=== PATIENT | male | born 1970 | race American Indian/Alaskan Native ===

== ENCOUNTER 2019-04-13 21:38 | Emergency (ER) | payer OTHER, SELFPAY ==
[2019-04-13 21:49] VITALS: BP 167/100; PULSE 69; RESP 16; TEMP 36.9; O2SAT 100; BMI 30.4
--- NOTE | 2019-04-13 21:53 | DI.RAD.S_ITS ---
PROCEDURE: XR CHEST 1V INDICATIONS: chest pain TECHNIQUE: One view of the chest was acquired. COMPARISON: None. FINDINGS: Surgical changes and devices: None. Lungs and pleura: Lungs are clear. No pleural effusions or pneumothorax. Mediastinum: Mediastinal contours appear normal. Heart size is normal. Bones and chest wall: No suspicious bony lesions. Overlying soft tissues appear unremarkable. IMPRESSION: No acute cardiopulmonary abnormalities or focal airspace disease. Dictated by: Deven Wayne M.D. on 04/14/2019 at 7:43 Approved by: Deven Wayne M.D. on 04/14/2019 at 7:43
[2019-04-13 22:13] LABS: Prothrombin Time 11.7 SECONDS (10.1-12.7)
[2019-04-13 22:15] LABS: Add Manual Diff / Slide Review NO; Basophils Absolute Auto 100 /uL (0-100); Basophils Percent Auto 1.2 % (0-2); Eosinophils Absolute Auto 200 /uL (0-450); Eosinophils Percent Auto 2.3 % (2-4); Hematocrit 40.8 % (41-53); Hemoglobin 13.9 g/dL (13.5-17.5); Lymphocytes Absolute Auto 2000 /uL (1100-4500); Lymphocytes Percent Auto 29.7 % (25-40); Mean Corpuscular HGB Conc 33.9 % (30-36); Mean Corpuscular Hemoglobin 28.7 PG (26-34); Mean Corpuscular Volume 84.5 fL (80-100); Monocytes Absolute Auto 600 /uL (0-900); Monocytes Percent Auto 8.5 % (3-14); Neutrophils Absolute Auto 4000 /uL (1500-7000); Neutrophils Percent Auto 58.3 % (50-75); Platelet Count 227 X10^3/uL (150-400); Red Blood Cell Count 4.83 X10^6/uL (4.5-5.9); Red Cell Distribution Width 14.8 % (11.6-14.8); White Blood Cell Count 6.8 X10^3/uL (4.5-11.0)
[2019-04-13 22:16] LABS: PTT Partial Thromboplastin Tim 37 SECONDS (26.4-36.2)
[2019-04-13 22:19] LABS: Alanine Aminotransferase 26 IU/L (<50); Albumin 4.2 g/dL (3.5-5.0); Albumin Globulin Ratio 1.2 (1.0-2.8); Alkaline Phosphatase 79 U/L (38-126); Aspartate Aminotransferase 24 IU/L (17-59); Bilirubin Total 0.5 mg/dL (0.2-1.3); Blood Urea Nitrogen 14 mg/dL (9-20); Calcium 9.2 mg/dL (8.4-10.2); Carbon Dioxide 32 mmol/L (22-32); Chloride 106 mmol/L (98-107); Creatine Kinase 77 U/L (55-170); Estimated Glomerular Filt Rate > 60.0 mL/min (>60); Globulin 3.4 g/dL (1.7-4.1); Glucose 114 mg/dL (70-100); HEMOLYSIS < 15 (0-50); Lipase 149 U/L (23-300); Potassium 4.1 mmol/L (3.4-5.1); Sodium 143 mmol/L (137-145); Total Protein 7.6 g/dL (6.3-8.2)
--- NOTE | 2019-04-13 22:19 | ED_ITS ---
HPI - Chest Pain General Chief Complaint: Chest Pain Stated Complaint: left side chest pain Time Seen by Provider: 04/13/19 22:18 Source: patient Mode of arrival: Ambulatory History of Present Illness HPI narrative: Chief complaint: Chest Pain History present illness: The patient is a 49-year-old male who presented to the emergency department with left-sided chest pain which started yesterday. The chest pain was not constant but intermittent. It occurred while he was at home last night and not at work. The pain occurred again tonight while he was attending his son's basketball practice. The pain is a sharp intermittent pain that occurs when deep breathing coughing to twisting and moving. He denies any fall or injury. The discomfort ranges in intensity from 5-8 over 10. He denies any cough fever or chills. He has had no headache neck pain jaw pain shoulder arm pain. The pain is fleeting and lasts only for a few seconds. He has felt short of breath but has had no significant cough. He has had no dizziness but has had intermittent palpitations. He denies any nausea or vomiting but has had intermittent diarrhea. Related Data Previous Rx's Medication Instructions Recorded cyclobenzaprine 10 mg PO TID PRN #15 tab 04/13/19 naproxen [Naprosyn] 500 mg PO BID PRN #20 tab 04/13/19 Allergies Allergy/AdvReac Type Severity Reaction Status Date / Time No Known Allergies Allergy Uncoded 06/12/17 12:55 Review of Systems Review of Systems Narrative: The patient's review of systems were all negative except for those mentioned in the history of present illness. Patient History Social History Smoking Status: Never smoker Smoking Status: Never smoker alcohol intake frequency: 0-2 drinks per day Substance Use Type: does not use Exam Narrative Exam Narrative: PHYSICAL EXAM: CONSTITUTIONAL: Awake, Alert, Oriented, Coherent, Cooperative in NAD. Does not appear toxic or ill. HEAD: AT/NC EENT: PERRL, FROM of eyes, no discharge, Oral mucosa is moist and pink, posterior pharynx is without erythema or exudate. NECK: Supple, no obvious JVD, Trachea is midline without stridor, no palpable LN or masses. SPINE: No gross deformity, no palpable tenderness of the cervical, thoracic, lumbar or sacral spine. No CVA tenderness. THORAX: No deformity, retractions, subcutaneous air or crepitice. The patien t's left costal sternal margin is tender to palpation as well as AP compression which is reproducible and mimics the chest pain described. LUNGS: Clear with symmetrical breath sounds without respiratory distress HEART: Normal heart tones, regular rhythm and rate without murmur. ABDOMEN: Soft, non-tender, normal bowel sounds without guarding, rebound, rigidity or palpable mass EXTREMITIES: No edema, cyanosis, deformity or tenderness. SKIN: No rash, bruising, petechiae or purpura. NEURO: Awake, alert, oriented, conversive, cranial nerves II-XII are symmetrical and normal, moves all 4 extremities and is ambulatory Initial Vital Signs Initial Vital Signs: Vital Signs Temperature 98.4 F 04/13/19 21:49 Pulse Rate 69 04/13/19 21:49 Respiratory Rate 16 04/13/19 21:49 Blood Pressure 167/100 H 04/13/19 21:49 Pulse Oximetry 100 04/13/19 21:49 Course Course Course Narrative: [id number] patient's EKG reveals no acute diagnostic ST changes or T-wave abnormalities. The patient's chest x-ray by my review reveals poor inspiration but I did not appreciate any acute cardiopulmonary pathology. The patient's chest pain that he describes is reproducible on palpation along the arm left costovertebral angle and costal sternal margins without crepitus. This is reproducible and mimics the chest pain described. The patient's chest pain is musculoskeletal in nature and will be discharged on Naprosyn and Flexeril. Orders Ordered: ED Orders 04/13/19 21:49 EKG-12 Lead Stat 04/13/19 21:53 XR chest 1V Stat 04/13/19 21:55 Complete Blood Count AUTO DIFF Stat Comprehensive Metabolic Panel Stat Lipase Stat Partial Thromboplastin Time Stat Prothrombin Time INR Stat Troponin & CK Cardiac Panel Stat Vital Signs Vital signs: Vital Signs - 8 hr 04/13/19 21:49 Temperature 98.4 F Pulse Rate 69 Respiratory Rate 16 Blood Pressure 167/100 H Pulse Oximetry 100 MDM - Chest Pain Medical Records Data Attestation: I reviewed the patient's medical records. Lab Data Attestation: I reviewed the patient's lab results. Result diagrams: 04/13/19 21:55 04/13/19 21:55 Labs: Lab Results 04/13/19 04/13/19 04/13/19 Range/Units 21:55 21:55 21:55 WBC 6.8 (4.5-11.0) X10^3/uL RBC 4.83 (4.5-5.9) X10^6/uL Hgb 13.9 (13.5-17.5) g/dL Hct 40.8 L (41-53) % MCV 84.5 (80-100) fL MCH 28.7 (26-34) PG MCHC 33.9 (30-36) % RDW 14.8 (11.6-14.8) % Plt Count 227 (150-400) X10^3/uL Neut % (Auto) 58.3 (50-75) % Lymph % (Auto) 29.7 (25-40) % [place] % (Auto) 8.5 (3-14) % Eos % (Auto) 2.3 (2-4) % Baso % (Auto) 1.2 (0-2) % Neut # (Auto) 4000 (7514-3278) /uL Lymph # (Auto) 2000 (6269-8385) /uL [place] # (Auto) 600 (0-900) /uL Eos # (Auto) 200 (0-450) /uL Baso # (Auto) 100 (0-100) /uL PT 11.7 (10.1-12.7) SECONDS INR 1.0 (0.9-1.3) APTT 37 H (26.4-36.2) SECONDS Sodium 143 (137-145) mmol/L Potassium 4.1 (3.4-5.1) mmol/L Chloride 106 (98-107) mmol/L Carbon Dioxide 32 (22-32) mmol/L BUN 14 (9-20) mg/dL Creatinine 1.00 (0.66-1.25) mg/dL Estimated GFR > 60.0 (>60) mL/min BUN/Creatinine Ratio 14.0 (6-22) Glucose 114 H (70-100) mg/dL Calcium 9.2 (8.4-10.2) mg/dL Total Bilirubin 0.5 (0.2-1.3) mg/dL AST 24 (17-59) IU/L ALT 26 (<50) IU/L Alkaline Phosphatase 79 (38-126) U/L Total Creatine Kinase 77 (55-170) U/L CK-MB (CK-2) TNP CK-MB (CK-2) Rel Index TNP Troponin I < 0.012 (0.01-0.034) ng/mL Total Protein 7.6 (6.3-8.2) g/dL Albumin 4.2 (3.5-5.0) g/dL Globulin 3.4 (1.7-4.1) g/dL Albumin/Globulin Ratio 1.2 (1.0-2.8) Lipase 149 (23-300) U/L ECG Data Attestation: I personally reviewed and interpreted this ECG as follows: Interpretation: The patient's EKG obtained on April 13 at 21:4 9:11 a.m. revealed a sinus rhythm with minimal voltage criteria for left ventricular hypertrophy. The patient has a Q-wave in lead III but none noted anywhere else in the EKG. The patient has inverted T-waves in leads III AVF and V1. This may indicate that the patient has inferior wall ischemia or even a possible infarct of unknown age. The patient has non specific ST segment changes but nondiagnostic for an acute injury or acute ischemia. Discharge Plan Departure Patient Disposition: Home Clinical Impression: Atypical chest pain, Chest wall pain Discharge Date/Time: 04/13/19 23:25 Instructions: DI for Atypical Chest Pain Activity Restrictions/Additional Instructions: Follow-up in be re-evaluated by your primary care physician in 48-72 hours. Your EKG revealed no acute changes to suggest that your pain is secondary to your heart. Your chest x-ray looks fine. Your chest pain is reproducible by squeezing and palpating your chest. This is chest wall pain. Take the Naprosyn as a pain medicine and anti-inflammatory medicine for the discomfort and for persistent pain unrelieved by the Naprosyn or associated muscle spasms use the Flexeril. If you developed intolerable pain or discomfort or shortness of breath racing of your heart in passing-out you need to return to the emergency department. Prescriptions: New naproxen [Naprosyn] 500 mg tablet 500 mg PO BID PRN (Reason: pain) Qty: 20 RF: 0 cyclobenzaprine 10 mg tablet 10 mg PO TID PRN (Reason: muscle spasm) Qty: 15 RF: 0
[2019-04-13 22:30] LABS: Troponin I < 0.012 ng/mL (0.01-0.034)
[2019-04-13 23:25] VITALS: BP 138/88; PULSE 72; RESP 16; O2SAT 99
== END 2019-04-13 23:25 | disposition home or self-care (01) ==
PROVIDERS: Emergency Provider Emergency Medicine
DX: R07.89 Other chest pain (principal)
CPT/HCPCS: 36415; 71045; 80053; 82550; 83690; 84484; 85025; 85610; 85730; 93005; 99284; 99285

== ENCOUNTER 2020-10-28 23:43 | Inpatient (IN) | payer OTHER, SELFPAY ==
[2020-10-29] VITALS (14 sets, daily range): BP systolic 104–183; BP diastolic 59–110; PULSE 58–72; RESP 12–20; TEMP 36.1–37.5; O2SAT 93–100; BMI 28.6
--- NOTE | 2020-10-29 00:07 | DI.CT.S_ITS ---
PROCEDURE: CT LE RT W CON INDICATIONS: large open wound, pain, swelling, drainage. Osteo, abscess, TECHNIQUE: After the administration of intravenous contrast, 3 mm axial sections acquired of the right lower leg , with coronal and sagittal reformats. COMPARISON: None. FINDINGS: Image quality: Excellent. Bones: No acute fracture or traumatic malalignment. Postoperative changes of ACL reconstruction are present. Mild joint space narrowing and marginal osteophytes of the medial and lateral compartments of the knee. Mild osteophyte formation in the tibiotalar joint. No evidence of osteomyelitis. Soft tissues: Large defect along the skin surface of the anterior mid clark with associated skin thickening and surrounding fatty stranding involving the lower leg to just below the knee. No soft tissue abscess. No evident myofascial changes. IMPRESSION: 1. Large soft tissue defect/ulcer of the midshin with associated cellulitis. No abscess. 2. No evidence of osteomyelitis within limits of CT. 3. Mild degenerative changes of the knee and ankle. Note: No significant discrepancy in the preliminary report. Dictated by: Hema Xie M.D. on 10/29/2020 at 7:36 Approved by: Hema Xie M.D. on 10/29/2020 at 7:42
[2020-10-29 00:44] LABS: Add Manual Diff / Slide Review NO; Basophils Absolute Auto 100 /uL (0-100); Basophils Percent Auto 0.6 % (0-2); Eosinophils Absolute Auto 100 /uL (0-450); Eosinophils Percent Auto 1.2 % (2-4); Hematocrit 36.4 % (41-53); Hemoglobin 12.1 g/dL (13.5-17.5); Lymphocytes Absolute Auto 1800 /uL (1100-4500); Lymphocytes Percent Auto 18.8 % (25-40); Mean Corpuscular HGB Conc 33.2 % (30-36); Mean Corpuscular Hemoglobin 27.8 PG (26-34); Mean Corpuscular Volume 83.7 fL (80-100); Monocytes Absolute Auto 700 /uL (0-900); Monocytes Percent Auto 6.8 % (3-14); Neutrophils Absolute Auto 7000 /uL (1500-7000); Neutrophils Percent Auto 72.6 % (50-75); Platelet Count 259 X10^3/uL (150-400); Red Blood Cell Count 4.35 X10^6/uL (4.5-5.9); Red Cell Distribution Width 15.2 % (11.6-14.8); White Blood Cell Count 9.7 X10^3/uL (4.5-11.0)
--- NOTE | 2020-10-29 00:44 | ED.WOUNDLAC ---
HPI - Wound/Laceration General Chief Complaint: Wound/Laceration Stated Complaint: open wound, infected Time Seen by Provider: 10/28/20 23:50 Source: patient Mode of arrival: Ambulatory Limitations: no limitations History of Present Illness HPI narrative: 50-year-old male nonsmoker with history of eczema, MRSA and hypertension presents for evaluation of an infected wound on his left clark. He states that he scraped it while working on a golf cart at the end of August. He was seen by his doctor and placed on a prescription of what sounds like Doxycyline. He had on going symptoms and was evaluated again around the 04 of September and started on Clindamycin which he stopped taking about senior care through. Over the past few and has been gradually worsening to the point we see today. He has been on clindamycin as prescribed by his primary care provider. He is here today because of fever and chills as well as worsening pain, redness and now blackening of the skin around the edges. He denies any redness or streaks moving up his leg. He is nauseous but denies any vomiting. The pain increases when he walks and improves with rest. Related Data Previous Rx's Medication Instructions Recorded cyclobenzaprine 10 mg tablet 10 mg PO TID PRN #15 tab 04/13/19 naproxen 500 mg tablet (Naprosyn) 500 mg PO BID PRN #20 tab 04/13/19 Allergies Allergy/AdvReac Type Severity Reaction Status Date / Time No Known Allergies Allergy Uncoded 06/12/17 12:55 Review of Systems Review of Systems Narrative: GENERAL: Denies chills, fatigue, malaise, fever, sweats. HEENT: Denies sinus pain, ear pain, sore throat, difficulty swallowing, dizziness. RESPIRATORY: Denies dyspnea, cough, wheezing, hemoptysis, sputum. CARDIOVASCULAR: Denies chest pain, palpitations, orthopnea, edema, GASTROINTESTINAL: Denies nausea, vomiting, abdominal pain, diarrhea, constipation, melena. : Denies dysuria, frequency, incontinence, hematuria, urinary retention. MUSCULOSKELETAL: denies weakness, joint pain, or bony pain SKIN: see HPI NEUROLOGIC: Denies weakness, headache, numbness, change in speech, confusion, seizures, incoordination. PSYCHIATRIC: No concerning psychosocial issues. 12 point review of systems is negative except for those stated above Patient History Social History Smoking Status: Never smoker Smoking Status: Never smoker alcohol intake frequency: 0-2 drinks per day Substance Use Type: does not use Exam Narrative Exam Narrative: GENERAL: [50] year old patient appears stated age. Well-developed patient, in mild distress. HEAD: Atraumatic. Normocephalic. EYES: Pupils equal round and reactive. Extraocular motions intact. No scleral icterus. No injection or drainage. ENT: Nose without bleeding, purulent drainage. Throat without erythema, tonsillar hypertrophy or exudate. Airway patent. NECK: Trachea midline. Non tender CARDIOVASCULAR: Regular rate and rhythm without murmurs, gallops, or rubs. RESPIRATORY: Clear to auscultation. Breath sounds equal bilaterally. No wheezes, rales, or rhonchi. GASTROINTESTINAL: Abdomen soft, non-tender, nondistended. EXTREMITIES: No edema or joint tenderness. BACK: Nontender without deformity or crepitance. No flank tenderness. NEURO: AOx3. SKIN: 7x5cm ulcerated open wound with copius drainage on R anterior clark. There is erythema, warmth, tenderness and induration of the lateral edge with some necrotic tissue. No fluctuance. Subcu tissue visible, no muscle or bone visible. No crepitance. Initial Vital Signs Initial Vital Signs: Vital Signs Temperature 99.5 F 10/29/20 00:05 Pulse Rate 70 10/29/20 00:05 Respiratory Rate 20 10/29/20 00:05 Blood Pressure 159/102 H 10/29/20 00:05 Pulse Oximetry 98 10/29/20 00:05 Course Orders Ordered: ED Orders 10/29/20 00:07 CT LE RT w con Stat 10/29/20 00:26 COVID19 - ADMIT ([employer] swab/PCR) Stat 10/29/20 00:27 C-Reactive Protein Quant Stat Complete Blood Count AUTO DIFF Stat Comprehensive Metabolic Panel Stat Erythrocyte Sedimentation Rate Stat Lactate (Lactic Acid) Stat Magnesium Stat 10/29/20 00:40 Wound Culture and Gram Stain Stat 10/29/20 00:43 Blood Culture Stat Vancomycin HCl/Dextrose (Vancomycin) 1,500 mg in 300 mls @ 200 mls/hr IV Q24H MARIEL Last Admin: 10/29/20 01:58 Dose: 200 mls/hr Documented by: ELROY Discontinued Medications Diphtheria/Tetanus/Acell Pertussis (Tet,Diph,Pertuss(Acell),Vac/Pf 0.5 Ml Syringe) 0.5 ml IM .ONCE ONE Stop: 10/29/20 00:08 Last Admin: 10/29/20 00:56 Dose: 0.5 ml Documented by: ELROY Lactated Ringer's (Lactated Ringers) 1,000 mls @ 1,000 mls/hr IV BOLUS ONE Stop: 10/29/20 01:06 Last Admin: 10/29/20 00:51 Dose: 1,000 mls/hr Documented by: ELROY Piperacillin Sod/Tazobactam (Sod 4.5 gm/ Sodium Chloride) 100 mls @ 200 mls/hr IV NOW ONE Stop: 10/29/20 00:08 Last Infusion: 10/29/20 01:53 Dose: 0 mls/hr Documented by: Admin: 10/29/20 00:52 Dose: 200 mls/hr Documented by: ELROY Consultations Consultation #1: Discussed with on-call general surgery (Dr. Hackett) who shares the pain and the patient is appropriate for admission, IV antibiotics and likely surgical debridement. Vital Signs Vital signs: Vital Signs - 8 hr 10/29/20 00:05 Temperature 99.5 F Pulse Rate 70 Respiratory Rate 20 Blood Pressure 159/102 H Pulse Oximetry 98 MDM - Wound/Laceration Lab Data Result diagrams: 10/29/20 00:27 10/29/20 00:27 Labs: Lab Results 10/29/20 10/29/20 10/29/20 Range/Units 00:26 00:27 00:27 WBC 9.7 (4.5-11.0) X10^3/uL RBC 4.35 L (4.5-5.9) X10^6/uL Hgb 12.1 L (13.5-17.5) g/dL Hct 36.4 L (41-53) % MCV 83.7 (80-100) fL MCH 27.8 (26-34) PG MCHC 33.2 (30-36) % RDW 15.2 H (11.6-14.8) % Plt Count 259 (150-400) X10^3/uL Neut % (Auto) 72.6 (50-75) % Lymph % (Auto) 18.8 L (25-40) % [place] % (Auto) 6.8 (3-14) % Eos % (Auto) 1.2 L (2-4) % Baso % (Auto) 0.6 (0-2) % Neut # (Auto) 7000 (8884-2437) /uL Lymph # (Auto) 1800 (3093-5854) /uL [place] # (Auto) 700 (0-900) /uL Eos # (Auto) 100 (0-450) /uL Baso # (Auto) 100 (0-100) /uL ESR 39 H (0-15) MM/HR Sodium 140 (137-145) mmol/L Potassium 3.4 (3.4-5.1) mmol/L Chloride 107 (98-107) mmol/L Carbon Dioxide 26 (22-32) mmol/L BUN 12 (9-20) mg/dL Creatinine 0.98 (0.66-1.25) mg/dL Estimated GFR > 60.0 (>60) mL/min BUN/Creatinine Ratio 12.2 (6-22) Glucose 144 H (70-100) mg/dL Lactate (0.7-2.1) mmol/L Calcium 8.7 (8.4-10.2) mg/dL Magnesium 2.1 (1.6-2.3) mg/dL Total Bilirubin 0.7 (0.2-1.3) mg/dL AST 25 (17-59) IU/L ALT 20 (<50) IU/L Alkaline Phosphatase 90 (38-126) U/L C-Reactive Protein 6.1 H (<1.0) mg/dL Total Protein 7.2 (6.3-8.2) g/dL Albumin 3.8 (3.5-5.0) g/dL Globulin 3.4 (1.7-4.1) g/dL Albumin/Globulin Ratio 1.1 (1.0-2.8) SARS-CoV-2 (PCR) Negative (Negative) 10/29/20 Range/Units 00:27 WBC (4.5-11.0) X10^3/uL RBC (4.5-5.9) X10^6/uL Hgb (13.5-17.5) g/dL Hct (41-53) % MCV (80-100) fL MCH (26-34) PG MCHC (30-36) % RDW (11.6-14.8) % Plt Count (150-400) X10^3/uL Neut % (Auto) (50-75) % Lymph % (Auto) (25-40) % [place] % (Auto) (3-14) % Eos % (Auto) (2-4) % Baso % (Auto) (0-2) % Neut # (Auto) (6330-8721) /uL Lymph # (Auto) (0394-2894) /uL [place] # (Auto) (0-900) /uL Eos # (Auto) (0-450) /uL Baso # (Auto) (0-100) /uL ESR (0-15) MM/HR Sodium (137-145) mmol/L Potassium (3.4-5.1) mmol/L Chloride (98-107) mmol/L Carbon Dioxide (22-32) mmol/L BUN (9-20) mg/dL Creatinine (0.66-1.25) mg/dL Estimated GFR (>60) mL/min BUN/Creatinine Ratio (6-22) Glucose (70-100) mg/dL Lactate 1.0 (0.7-2.1) mmol/L Calcium (8.4-10.2) mg/dL Magnesium (1.6-2.3) mg/dL Total Bilirubin (0.2-1.3) mg/dL AST (17-59) IU/L ALT (<50) IU/L Alkaline Phosphatase (38-126) U/L C-Reactive Protein (<1.0) mg/dL Total Protein (6.3-8.2) g/dL Albumin (3.5-5.0) g/dL Globulin (1.7-4.1) g/dL Albumin/Globulin Ratio (1.0-2.8) SARS-CoV-2 (PCR) (Negative) Imaging Data CT RLE w/Contrast: Radiologist's Impression: Contrast-enhanced images of left tibia fibula demonstrating a large open wound/ulcerative defect involving the mid anteromedial aspect of the calf with severe skin thickening and edema with simultaneous fat stranding originating at the level of the defect and extending inferiorly along the distal aspect of the calf. There is significant edema and skin thickening involving the medial and lateral margins of the left ankle near the malleoli. No fluid collection or abscess. Most consistent with open wound or ulcer with associated cellulitis. No cortical irregularity or erosive change involving the adjacent tibia Discharge Plan Departure Patient Disposition: Admitted as Observation Clinical Impression: Cellulitis of left leg, Leg ulcer, left Prescriptions: No Action naproxen [Naprosyn] 500 mg tablet 500 mg PO BID PRN (Reason: pain) Qty: 20 RF: 0 cyclobenzaprine 10 mg tablet 10 mg PO TID PRN (Reason: muscle spasm) Qty: 15 RF: 0 Referrals: Florentino Aguilar MD [Primary Care Provider] -
[2020-10-29 00:48] LABS: Alanine Aminotransferase 20 IU/L (<50); Albumin 3.8 g/dL (3.5-5.0); Albumin Globulin Ratio 1.1 (1.0-2.8); Alkaline Phosphatase 90 U/L (38-126); Aspartate Aminotransferase 25 IU/L (17-59); BUN Creatinine Ratio 12.2 (6-22); Bilirubin Total 0.7 mg/dL (0.2-1.3); Blood Urea Nitrogen 12 mg/dL (9-20); C-Reactive Protein Quant 6.1 mg/dL (<1.0); Calcium 8.7 mg/dL (8.4-10.2); Carbon Dioxide 26 mmol/L (22-32); Chloride 107 mmol/L (98-107); Estimated Glomerular Filt Rate > 60.0 mL/min (>60); Globulin 3.4 g/dL (1.7-4.1); Glucose 144 mg/dL (70-100); HEMOLYSIS < 15 (0-50); Magnesium 2.1 mg/dL (1.6-2.3); Potassium 3.4 mmol/L (3.4-5.1); Sodium 140 mmol/L (137-145); Total Protein 7.2 g/dL (6.3-8.2)
[2020-10-29] MEDS: LACTATED RINGERS 1,000 ML 1000 ML IV (00:51)
[2020-10-29] MEDS: PIPERACILLIN/TAZO 4.5 GM in SODIUM CHLORIDE 0.9% 100 ML 200 ML IV (00:52)
[2020-10-29] MEDS: TET,DIPH,PERTUSS(ACELL),VAC/PF 0.5 ML SYRINGE IM (00:56)
[2020-10-29 00:57] LABS: Erythrocyte Sedimentation Rate 39 MM/HR (0-15)
[2020-10-29 01:43] LABS: COVID19 - ADMIT (NP swab/PCR) Negative (Negative)
[2020-10-29] MEDS: VANCOMYCIN 1,500 MG/300 ML PIGGYBACK 200 MG IV (01:58)
--- NOTE | 2020-10-29 05:16 | PC.ADMIT ---
Addendum entered by Selene Flowers R.N. 10/29/20 06:45: Photos of Wound were taken upon admission. Original Note: [id number] [facility] Admission Note: Patient arrived to the unit via bed from the ED. Patient is A/O and states pain in RLL at 6/10. Patients wound has two wounds on RLL, both open to air. The larger wound measures approximately 6.5 cm x 5.5 cm with blackened skin around the edges, yellow in the center, and weeping. The second wound in distal to the larger wound, measures approximately 1 cm x 2 cm and is not open or weeping. Patients BP was elevated but states he normally has high blood pressure and takes a medication at home. Patient was oriented to room and call light, bed alarm is set with bed is in lowest locked position. Awaiting orders The patient,Jeff Culver,50 y/o, was given written information regarding hospital policies, unit procedures and contact persons. Patient's smoking status: Never smoker. Vital Signs - 8 hr 10/29/20 00:05 10/29/20 04:05 10/29/20 04:58 Temperature 99.5 F 97.6 F Pulse Rate 70 60 Respiratory Rate 20 20 Blood Pressure 159/102 H 183/110 H 177/106 H Pulse Oximetry 98 100
[2020-10-29] MEDS: SODIUM CHLORIDE 0.9% 1,000 ML 125 ML IV (05:56)
[2020-10-29] MEDS: PIPERACILLIN/TAZO 3.375 GM in SODIUM CHLORIDE 0.9% 100 ML 25 ML IV (05:56)
--- NOTE | 2020-10-29 08:39 | PM.HP.1 ---
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 2 rounds of oral antibiotics. Was improving and yesterday at a golf tournament his wound opened up again and started to drain. No fever, no cough. No previous issues with healing or known diabetes. Pain is with movement and touch. Patient History Family & Social History Social History: household members significant other Prior Living Arrangements House Safety & Behavioral: Feels Safe in Current Yes Environment Been Physically Hurt or No Threatened By a Person Suicidal Ideation Description None Suicide Plan Description No Plan Tobacco & Substance use: Smoking Status Never smoker alcohol intake never alcohol intake frequency 0-2 drinks per day Substance Use Type does not use Meds Home Medications and Allergies Home Medications Medication Instructions Recorded Confirmed Type lisinopril 10 mg tablet 10 mg PO DAILY 10/29/20 10/29/20 History Allergies Allergy/AdvReac Type Severity Reaction Status Date / Time No Known Drug Allergies Allergy Verified 10/29/20 07:15 Review of Systems Review of Systems ROS: Yes All systems reviewed with the patient and are negative except as otherwise documented Exam Vital Signs (past 8 hours): - 10/29/20 04:05 10/29/20 04:58 Temperature 97.6 F Pulse Rate 60 Respiratory Rate 20 Blood Pressure 183/110 H 177/106 H Pulse Oximetry 100 Oxygen Delivery Method Room Air Oxygen Flow Rate 0 Const General: cooperative and healthy appearing Nutritional Appearance: average body habitus HENNM Head: normal to inspection, normocephalic and atraumatic Ears: hearing grossly normal bilaterally Nose: nares normal Face and sinus: normal facial exam Eyes General: appearance normal, both eyes and all related structures Sclera: sclerae normal Neck Neck: trachea midline Chest Chest: normal inspection of the chest Resp Effort & Inspection: normal respiratory effort and able to speak in complete sentences Cardio Rate: tachycardic Rhythm: regular rhythm GI Inspection: normal to inspection Palpation: soft Skin General: elasticity normal Rashes: no rashes Other: right anterior tibia wound serous drainage exscar and necrotic tissue. 6 cm x 5.5 cm x .3 cm Neuro General: patient alert, patient awake and patient oriented x3 Extrem Other: right foot with edema, +hair growth, DP and PT not easily palpable due to edema, wound as above. Psych Mental Status: mental status grossly normal Attitude: cooperative Judgment: judgment good Objective Labs Result Diagrams: 10/29/20 00:27 10/29/20 00:27 Labs: Laboratory Results - last 24 hr 10/29/20 10/29/20 10/29/20 00:26 00:27 00:27 WBC 9.7 RBC 4.35 L Hgb 12.1 L Hct 36.4 L MCV 83.7 MCH 27.8 MCHC 33.2 RDW 15.2 H Plt Count 259 Neut % (Auto) 72.6 Lymph % (Auto) 18.8 L [place] % (Auto) 6.8 Eos % (Auto) 1.2 L Baso % (Auto) 0.6 Neut # (Auto) 7000 Lymph # (Auto) 1800 [place] # (Auto) 700 Eos # (Auto) 100 Baso # (Auto) 100 ESR 39 H Sodium 140 Potassium 3.4 Chloride 107 Carbon Dioxide 26 BUN 12 Creatinine 0.98 Estimated GFR > 60.0 BUN/Creatinine Ratio 12.2 Glucose 144 H Lactate Calcium 8.7 Magnesium 2.1 Total Bilirubin 0.7 AST 25 ALT 20 Alkaline Phosphatase 90 C-Reactive Protein 6.1 H Total Protein 7.2 Albumin 3.8 Globulin 3.4 Albumin/Globulin Ratio 1.1 SARS-CoV-2 (PCR) Negative 10/29/20 00:27 WBC RBC Hgb Hct MCV MCH MCHC RDW Plt Count Neut % (Auto) Lymph % (Auto) [place] % (Auto) Eos % (Auto) Baso % (Auto) Neut # (Auto) Lymph # (Auto) [place] # (Auto) Eos # (Auto) Baso # (Auto) ESR Sodium Potassium Chloride Carbon Dioxide BUN Creatinine Estimated GFR BUN/Creatinine Ratio Glucose Lactate 1.0 Calcium Magnesium Total Bilirubin AST ALT Alkaline Phosphatase C-Reactive Protein Total Protein Albumin Globulin Albumin/Globulin Ratio SARS-CoV-2 (PCR) Assessment & Plan Assessment & Plan narrative: right lower extremity wound with infection and necrosis. Plan: OR for debridement and wound vac. COVID-19 COVID-19 status: Negative Time Spent With Patient Time with patient: 25 - 35 minutes
[2020-10-29] MEDS: LACTATED RINGERS 1,000 ML 42 ML IV ×2 (10:10→11:11)
--- NOTE | 2020-10-29 10:45 | SUR.OPER ---
Supine on padded OR bed, head on pillow, arms secured on padded arm boards at <90 degrees abduction, legs uncrossed, safety belt at thigh, tape over blanket over lower legs.
--- NOTE | 2020-10-29 10:59 | PM.OP.1 ---
Operative Date/Time/Diagnoses Date of procedure: 10/29/20 Time of procedure: 11:00 Pre-op diagnosis: left lower leg wound Post-op diagnosis: same Procedure & Clinicians Procedure: debride left lower extremity with negative pressure dressing Same procedure as scheduled: Yes Indications: left lower leg wound Surgeon: Leyda Vital Click Yes if Unassisted: Yes Anesthesia Type: General Operative Notes Findings: Wound was size 6 cm by 5.5 cm by 0.0 3 cm. Debridement carried out with 15 blade, good bleeding that was addressed with direct pressure. Specimen(s): none sent Prosthetic devices, grafts, tissues, transplants, or devices: Negative pressure dressing Estimated Blood Loss (mL): 10 Blood products transfused: none Procedure in detail: Preop diagnosis: Left lower extremity wound. Postop diagnosis: Same Operative procedure: Debridement of left lower extremity with negative pressure dressing along with compression dressing. Surgeon: Ro Vital MD Anesthetic: LMA with general. Findings: Fibrinous tissue, necrotic tissue. Down to muscle, debridement was of skin and subcutaneous tissue Procedure: Patient is placed in a supine position. Prepped and draped in sterile fashion. Fifteen blade was chosen to scrape the eschar and sharply debride the necrotic tissue of the skin. Skin and subcutaneous tissue was all that was debrided. Hemostasis was achieved with direct pressure. Final size of the wound as above 6 cm x 5.5 cm x 3 mm in depth. White foam dressing used for wound VAC. Wound VAC was covered with a compression dressing due to extremity swelling. Patient was awakened, extubated, taken to recovery room in stable condition. Needle, instrument, sponge counts were correct. Blood loss: 10 mL Specimen: None
--- NOTE | 2020-10-29 11:03 | PC.NURSE ---
Addendum entered by Abena Oglesby R.N. 10/29/20 15:04: Pt returned to floor from PACU at 1140 with wound vac to RLE, kerlex and LURDES wrap; PPP; pt reports mild pain but declines schedule [place]; in room and ice water at bedside; pt needs MD to sign form for work excuse next to chart Original Note: Pt supine with wound to lower right clark open to air; wound bed pink/white and draining; wound edges black; pt reports thrubbing to RLE but declines pain medication; ls clear, RA; pt denies nausea; @ 1000 pt transferred to surgery
--- NOTE | 2020-10-29 11:45 | CM.DANOTE ---
Patient is a 50 yo male who was admitted on 10/29/20 today for Open Infected Wound. Pt has L&I for insurance and his PCP is Florentino Aguilar. EMR was reviewed. Per Surgeon, pt to start on IV-Abx and NPO for I&D in the OR today. SW met bedside with pt and explained role and pt confirms that he lives in [facility] at home with his , who works, and his young adult Dtr and teenage son. Pt is typically independent at baseline but has struggled with the healing of his wound since a cut in August and was on oral abx but did not take the recommended full course as wound seemed to be better. Pt denies any hx of IV-Abx needs or HH or SNF. Pt states his family can assist at d/c. SW discussed possible need of IV-Abx at d/c pending his I&D and wound culture results. Pt's L&I may be a barrier if IV-Abx needed and coverage. Plan: SW to follow closely after I&D today towards determining d/c planning needs and to r/o IV-Abx at d/c. KIMBERLY Pisano Discharge Planning/Care Management CM Discharge Assessment Start: 10/29/20 11:43 Freq: Status: Active Protocol: Document 10/29/20 11:43 BF (Rec: 10/29/20 11:45 BF [id number]) Discharge Planning Assessment Assigned Watershed Program Manager KIMBERLY Garcia DPOA/Assigned Designee Name informally spouse Advance Directives? No Advance Directives on File No History Provided By Patient,Medical Record Has Patient been admitted in last 30 No days? Prior Living Arrangements House Household Members significant other,children Comment and 2 older children/ young adult kids Type of transporation used prior to Drives own vehicle admit Independent with ADL's Yes Is patient alert and oriented? Yes Caregiver for Another No Barriers to Discharge No Discharge Plan Home Community Services IV Therapy Transportation Arrangement Rule out IV-Abx at d/c pending cultures and I&D today Referrals Initiated None needed Additional Comment Follow for needs Review Status In Process Please Provide Date Initial DC 10/29/20 Assessment Was Performed Next Review Type Continued Stay Review
[2020-10-29] MEDS: CELECOXIB 200 MG CAPSULE PO (12:13)
[2020-10-29 15:12] LABS: Hemoglobin A1C% w Est Avg Glu 5.2 % (4.0-6.0)
[2020-10-29] MEDS: SODIUM CHLORIDE 0.9% FLUSH 10 ML IV (21:30)
[2020-10-30 00:20] VITALS: BP 119/71; PULSE 69; RESP 16; TEMP 36.2; O2SAT 96
[2020-10-30 04:00] VITALS: BP 127/78; PULSE 54; RESP 16; TEMP 36.4; O2SAT 97
[2020-10-30 08:20] VITALS: BP 136/82; PULSE 58; RESP 17; TEMP 36.6; O2SAT 98
[2020-10-30 08:46] VITALS: BP 136/82; PULSE 68
[2020-10-30] MEDS: lisinopriL 10 MG TABLET PO (08:46)
[2020-10-30] MEDS: SODIUM CHLORIDE 0.9% FLUSH 10 ML IV (08:46)
[2020-10-30] MEDS: CELECOXIB 200 MG CAPSULE PO (08:46)
--- NOTE | 2020-10-30 10:09 | PC.NURSE ---
Addendum entered by Frank Sahni R.N. 10/30/20 13:52: offers no overt c/o. wound vac patent and intact. Original Note: Pt alert and oriented, quiet affect. Discussed plan of care. Talked about his schedule and he plans to go crabbing in November. Discussed that that may not be possible until this infection and wound heals. Pt understands. Taking meds and b'fast without issue. Wound vac patent and intact. Trever wrap to right leg intact.
--- NOTE | 2020-10-30 10:41 | PM.PN.1 ---
Subjective Subjective Date Patient Seen: 10/30/20 Exam Vital Signs (past 8 hours): - 10/30/20 04:00 10/30/20 08:20 10/30/20 08:46 Temperature 97.5 F L 97.8 F Pulse Rate 54 L 58 L 68 Respiratory Rate 16 17 Blood Pressure 127/78 136/82 136/82 Pulse Oximetry 97 98 Oxygen Delivery Method Room Air Oxygen Flow Rate 0 Narrative Exam Narrative: leg edema resolved. wound vac intact. No clinical evidence of ongoing infection. Objective Labs Result Diagrams: 10/29/20 00:27 10/29/20 00:27 Labs: Laboratory Results - last 24 hr 10/29/20 00:27 Hemoglobin A1c 5.2 PFSH Social History household members: significant other and children Smoking Status: Never smoker alcohol intake: never Assessment & Plan Assessment & Plan narrative: Needs set up for home/portable wound vac machine and outpatient wound clinic follow up. Discharge depending on acquisition of equipment.
[2020-10-30] MEDS: ENOXAPARIN 40 MG/0.4 ML SYRINGE SUBCUT (14:35)
[2020-10-30 15:40] VITALS: BP 139/85; PULSE 64; RESP 17; TEMP 36.5; O2SAT 94
--- NOTE | 2020-10-30 15:54 | CM.DPC ---
DCP/continued: Reviewed chart. ORTHOTIST/PROSTHETIST received referral this AM from Dr. Vital requesting wound vac arrangements for outpatient. Wound vac placed during I&D on 10-29-20. ORTHOTIST/PROSTHETIST spoke with Dr. Vital and initial wound vac paperwork completed. Per Dr. Vital's note outpatient follow up for wound to be done by wound care center. ORTHOTIST/PROSTHETIST left message with Anabell at [facility] ext# [phone]. CM team to follow up in AM. P: Anticipate home with outpatient wound care follow up. KIMBERLY Foster
[2020-10-30 20:40] VITALS: BP 152/91; PULSE 63; RESP 16; TEMP 36.7; O2SAT 93
[2020-10-30] MEDS: ACETAMINOPHEN 325 MG TABLET 650 MG PO (22:54)
[2020-10-31 00:02] VITALS: BP 141/83; PULSE 61; RESP 16; TEMP 37; O2SAT 97
[2020-10-31 05:51] VITALS: BP 141/88; PULSE 53; RESP 16; TEMP 36.6; O2SAT 97
[2020-10-31 08:03] VITALS: BP 145/95; PULSE 59; RESP 16; TEMP 36.3; O2SAT 98
[2020-10-31] MEDS: CELECOXIB 200 MG CAPSULE PO (08:30)
[2020-10-31] MEDS: ENOXAPARIN 40 MG/0.4 ML SYRINGE SUBCUT (08:30)
[2020-10-31] MEDS: lisinopriL 10 MG TABLET PO (08:30)
[2020-10-31] MEDS: SODIUM CHLORIDE 0.9% FLUSH 10 ML IV (08:32)
--- NOTE | 2020-10-31 11:29 | CM.DPNOTE ---
Faxed OP, HP FS and Dr. Vital PN to [facility] center and received fax conf. Ny Mckeon CM Asst.
[2020-10-31 12:18] VITALS: BP 151/92; PULSE 57; RESP 16; TEMP 36.6; O2SAT 97
[2020-10-31] MEDS: HYDROCODONE/ACET 5/325 TABLET 2 TAB PO (14:09)
--- NOTE | 2020-10-31 14:24 | PC.NURSE ---
Day shift: Wound-Vac to be discontinued by japanese professor today from the wound clinic. That RN will provide teaching and apply new dressing to Pt's wound today. Pt will have f/u at wound clinic next week.
--- NOTE | 2020-10-31 14:46 | CM.DANOTE ---
DCP/continued: Reviewed chart. Spoke with Dr. Mcmullen this afternoon. He reports patient is medically stable for discharge today but will need either wound vac follow up and/or daily dressing change teaching until wound vac can be secured as outpatient. Paperwork for wound vac, face sheet, and operative note faxed to wound care [place]. Received confirmation it was received x2 via e-fax. SEMIAUTOMATIC STITCHER OPERATOR spoke with Cadence Dumont, and Anabell at wound [facility]. First available appointment for patient is November 08 at 3:00pm per Anabell however, Cadence reports that they have no openings for new wound care patient. Spoke again with Tim and actual next appointment is November 09 at 1:00pm with 12:45pm check in time. SEMIAUTOMATIC STITCHER OPERATOR requesting assistance with wound vac arrangements secondary to outpatient appointment not being until next week. Met with patient and he is in agreement with d/c home with spouse getting taught how to do daily dressing changes. Spoke with RN/Jenni and she reports that she will assist with dressing change and teaching with spouse. Patient's floor RN updated. P: Home this pm with wound vac taken off and daily dressing changes. Appointment with wound care on 11-09-20. KIMBERLY Foster
--- NOTE | 2020-10-31 14:57 | PM.DS.1 ---
History of Present Illness History of Present Illness Date Patient Seen: 10/31/20 Time Patient Seen: 14:57 Chief complaint: Left leg wound Narrative: 50-year-old male with an acute on chronic left lower extremity wound. Discharge Providers Provider Date of admission: 10/29/20 03:46 Discharge Date: 10/31/20 Primary care physician: Florentino Aguilar MD Consults: 10/30/20 09:41 Consult to [facility] [place] - Kitchen Bath Designer Routine Comment: portable wound vac machine for home. 10/31/20 08:08 Consult to Wound Care Routine Comment: Consulting Provider: Chris- Wound Care Discharge provider: Antelmo Mcmullen MD Summary Hospital Course Discharge Diagnosis: Left lower extremity wound Hospital Course: Patient was taken to the operating room 10/29 2020 and underwent a debridement of the left lower extremity wound. Necrotic tissue was sharply removed. Postoperatively he did well without acute issue. He is stable for discharge home with wet-to-dry dressing with plans for wound VAC once he establishes with the wound care center. Exam Vital Signs (past 8 hours): - 10/31/20 08:03 10/31/20 12:18 Temperature 97.4 F L 97.8 F Pulse Rate 59 L 57 L Respiratory Rate 16 16 Blood Pressure 145/95 H 151/92 H Pulse Oximetry 98 97 Oxygen Delivery Method Room Air Oxygen Flow Rate 0 Narrative Exam Narrative: General adult male alert oriented no acute distress Left lower extremity wound VAC to the mid clark holding suction. No evidence of surrounding cellulitis. Minimally tender to palpation Objective Labs Result Diagrams: 10/29/20 00:27 10/29/20 00:27 PFSH Social History household members: significant other and children Smoking Status: Never smoker alcohol intake: never Discharge Plan Discharge Plan Patient Disposition: Home Provider Discharge Comment: Follow up with wound care center later this week Wet to dry dressing change daily Discharge orders & Medications Prescriptions: New ibuprofen 200 mg tablet 400 mg PO Q6H Qty: 60 RF: 0 acetaminophen [Tylenol] 325 mg capsule 650 mg PO QID PRN (Reason: pain) Qty: 60 RF: 0 Continued lisinopril 10 mg Tablet 10 mg PO DAILY RF: 0 Medication counseling provided by Pharmacist: Yes Follow up/Referrals: Florentino Aguilar MD [Primary Care Provider] - Diet/Activity/Treatments Diet: Diet as Tolerated Skin/Wound/Dressing Care Report to your healthcare provider any signs of infection, such as:: chills, fever, increased pain, unusual drainage and unusual redness Visit Report/Discharge Packet Instructions: How to Prevent Falls, How to Change a Wet to Dry Wound Dressing, DI for Incision and Drainage, How to Use Antibiotics [facility], [facility]: Wound Care Stand Alone Forms: Surgery Discharge Discharge Data Primary Care Provider: Florentino Aguilar
--- NOTE | 2020-10-31 16:37 | PC.NURSE ---
Addendum entered by Susan Neves R.N. 10/31/20 17:11: Jenni ZENDEJAS presents to pt's room to remove hospital wound vac and dress wound for discharge home. Pt tolerates dressing change well and pt's spouse was instructed in procedure and supplied with enough dressing supplies to manage this wound at home pending follow up @ wound care clinic November 09 as scheduled. Pt left hospital with all personal belongings accounted for with spouse. Pt left hospital via wheelchair with PSYCHIATRIC ASSISTANT escort in stable condition. Original Note: Notified by supervisor welding equipment repairer, Twyla Grajeda, wound clinic unable to change pt's dressing for discharge. Jenni ZENDEJAS,who is working acute care and also holds position in wound care clinic, agreeable to remove wound vac and change dressing as ordered for discharge. EDWIN Mahoney aware of this plan. Pt also informed as well as pt's spouse. Both pt and pt's spouse state have follow up appointments in place for wound clinic and daily dressing changes at local clinic. Pt rates RLE wound pain 1-2/10 following administration of vicodin earlier in afternoon. Jenni states awaiting supplies from wound care center to proceed with dressing change and then pt to be discharged to home. IV removed intact and discharge instructions given to both pt and pt's spouse in written and verbal format.
--- NOTE | 2020-10-31 17:09 | PC.NURSE ---
Wound Vac DC'ed. I turned off [employer] wound vac, removed 1 piece white foam, cleansed wound with NS, pt dry with gauze and replaced with Aquacel Ag and an Aquacel silicone border foam 7x7 dressings. Provided wound care instructions and reminded pt of wound care appointment on Thursday 11/09 at 1pm. S.O. at bedside actively listening to instructions. Provided pt with supplies for dressing changes. No questions remained.
== END 2020-10-31 17:20 | disposition home or self-care (01) | DRG 571 ==
LOC: ED 10-29 03:08 → AC 10-29 03:47
PROVIDERS: Surgery; Admitting Provider Specialist; Emergency Provider Emergency Medicine; PCP Family Medicine; Referring Provider Emergency Medicine; Visit Provider Specialist
PROC: 0JBP0ZZ Excision of Left Lower Leg Subcutaneous Tissue and Fascia, Open Approach (ICD-10-PCS; principal; 2020-10-29 11:00)
DX: L97.829 Non-pressure chronic ulcer of other part of left lower leg with unspecified severity (principal); I96 Gangrene, not elsewhere classified; L08.89 Other specified local infections of the skin and subcutaneous tissue; Z23 Encounter for immunization
CPT/HCPCS: 36415; 73701; 80053; 83036; 83605; 83735; 85025; 85651; 86140; 87040; 87070; 87075; 87077; 87147; 87205; 87635; 90471; 96365; 96366; 96367; 99284; C9803; 90715; J1650; J2250; J2543; J2704; J3010; Q9967

== ENCOUNTER → 2020-11-09 13:46 | Outpatient (CLI) | payer OTHER, SELFPAY ==
[2020-10-29 04:25] VITALS: BMI 28.6
== END ==
PROVIDERS: PCP Family Medicine; Referring Provider Specialist; Visit Provider Family Medicine
DX: T81.89XA Other complications of procedures, not elsewhere classified, initial encounter (principal); S81.801A Unspecified open wound, right lower leg, initial encounter; S81.811S Laceration without foreign body, right lower leg, sequela; W22.8XXS Striking against or struck by other objects, sequela; B95.0 Streptococcus, group A, as the cause of diseases classified elsewhere; R60.0 Localized edema
CPT/HCPCS: 11042; 87070; 87075; 87077; 87147; 87186; 87205; 99204; 99214

== ENCOUNTER → 2020-11-16 08:37 | Outpatient (CLI) | payer OTHER, SELFPAY ==
[2020-10-29 04:25] VITALS: BMI 28.6
== END ==
PROVIDERS: PCP Family Medicine; Referring Provider Family Medicine; Visit Provider Family Medicine
DX: T81.89XA Other complications of procedures, not elsewhere classified, initial encounter (principal); S81.801A Unspecified open wound, right lower leg, initial encounter; B95.0 Streptococcus, group A, as the cause of diseases classified elsewhere; R60.0 Localized edema
CPT/HCPCS: 93922; 99212

== ENCOUNTER → 2020-11-22 14:30 | Outpatient (CLI) | payer OTHER, SELFPAY ==
[2020-10-29 04:25] VITALS: BMI 28.6
== END ==
PROVIDERS: PCP Family Medicine; Referring Provider Family Medicine; Visit Provider Family Medicine
DX: S81.801A Unspecified open wound, right lower leg, initial encounter (principal); L08.9 Local infection of the skin and subcutaneous tissue, unspecified
CPT/HCPCS: 11042; 11045; 87070; 87205; 99214

== ENCOUNTER → 2020-11-30 13:28 | Outpatient (CLI) | payer OTHER, SELFPAY ==
[2020-10-29 04:25] VITALS: BMI 28.6
== END ==
PROVIDERS: PCP Family Medicine; Referring Provider Family Medicine; Visit Provider Family Medicine
DX: S81.801A Unspecified open wound, right lower leg, initial encounter (principal); L08.9 Local infection of the skin and subcutaneous tissue, unspecified
CPT/HCPCS: 11042; 11045; 87070; 87075; 87077; 87186; 87205; 99213

== ENCOUNTER → 2020-12-08 08:28 | Outpatient (CLI) | payer OTHER, SELFPAY ==
[2020-10-29 04:25] VITALS: BMI 28.6
== END ==
PROVIDERS: PCP Family Medicine; Referring Provider Family Medicine; Visit Provider Family Medicine
DX: I87.2 Venous insufficiency (chronic) (peripheral) (principal); L97.812 Non-pressure chronic ulcer of other part of right lower leg with fat layer exposed
CPT/HCPCS: 11042; 11045; 99213

== ENCOUNTER → 2020-12-12 14:53 | Outpatient (CLI) | payer OTHER, SELFPAY ==
[2020-10-29 04:25] VITALS: BMI 28.6
== END ==
PROVIDERS: PCP Family Medicine; Referring Provider Family Medicine; Visit Provider Family Medicine
DX: I87.2 Venous insufficiency (chronic) (peripheral) (principal); L97.812 Non-pressure chronic ulcer of other part of right lower leg with fat layer exposed
CPT/HCPCS: 29580

== ENCOUNTER → 2020-12-15 13:59 | Outpatient (CLI) | payer OTHER, SELFPAY ==
[2020-10-29 04:25] VITALS: BMI 28.6
== END ==
PROVIDERS: PCP Family Medicine; Referring Provider Family Medicine; Visit Provider Family Medicine
DX: I87.2 Venous insufficiency (chronic) (peripheral) (principal); L97.811 Non-pressure chronic ulcer of other part of right lower leg limited to breakdown of skin
CPT/HCPCS: 11042

== ENCOUNTER → 2020-12-22 14:00 | Outpatient (CLI) | payer OTHER, SELFPAY ==
[2020-10-29 04:25] VITALS: BMI 28.6
== END ==
PROVIDERS: PCP Family Medicine; Referring Provider Family Medicine; Visit Provider Family Medicine
DX: I87.2 Venous insufficiency (chronic) (peripheral) (principal); L97.811 Non-pressure chronic ulcer of other part of right lower leg limited to breakdown of skin; L08.9 Local infection of the skin and subcutaneous tissue, unspecified
CPT/HCPCS: 87070; 87075; 87077; 87147; 87186; 87205; 99213; 99214

== ENCOUNTER → 2021-01-05 10:52 | Outpatient (CLI) | payer OTHER, SELFPAY ==
[2020-10-29 04:25] VITALS: BMI 28.6
== END ==
PROVIDERS: PCP Family Medicine; Referring Provider Family Medicine; Visit Provider Family Medicine
DX: I87.2 Venous insufficiency (chronic) (peripheral) (principal); L97.811 Non-pressure chronic ulcer of other part of right lower leg limited to breakdown of skin; L08.9 Local infection of the skin and subcutaneous tissue, unspecified; B95.7 Other staphylococcus as the cause of diseases classified elsewhere
CPT/HCPCS: 99213; 99214

== ENCOUNTER → 2021-01-19 08:50 | Outpatient (CLI) | payer OTHER, SELFPAY ==
[2020-10-29 04:25] VITALS: BMI 28.6
== END ==
PROVIDERS: PCP Family Medicine; Referring Provider Family Medicine; Visit Provider Family Medicine
DX: I87.2 Venous insufficiency (chronic) (peripheral) (principal); L97.811 Non-pressure chronic ulcer of other part of right lower leg limited to breakdown of skin
CPT/HCPCS: 97597

== ENCOUNTER → 2021-02-01 08:35 | Outpatient (CLI) | payer OTHER, SELFPAY ==
[2020-10-29 04:25] VITALS: BMI 28.6
== END ==
PROVIDERS: PCP Family Medicine; Referring Provider Family Medicine; Visit Provider Family Medicine
DX: I87.2 Venous insufficiency (chronic) (peripheral) (principal); L97.811 Non-pressure chronic ulcer of other part of right lower leg limited to breakdown of skin
CPT/HCPCS: 11042; 99212

== ENCOUNTER → 2021-02-06 14:03 | Outpatient (CLI) | payer OTHER, SELFPAY ==
[2020-10-29 04:25] VITALS: BMI 28.6
== END ==
PROVIDERS: PCP Family Medicine; Visit Provider Urology
DX: R30.0 Dysuria (principal)
CPT/HCPCS: 81002; 87077; 87086; 87186

== ENCOUNTER → 2021-02-22 11:51 | Outpatient (CLI) | payer OTHER, SELFPAY ==
[2020-10-29 04:25] VITALS: BMI 28.6
== END ==
PROVIDERS: PCP Family Medicine; Referring Provider Specialist; Visit Provider Family Medicine
DX: I87.2 Venous insufficiency (chronic) (peripheral) (principal); L97.811 Non-pressure chronic ulcer of other part of right lower leg limited to breakdown of skin
CPT/HCPCS: 99212

== ENCOUNTER → 2021-03-08 09:44 | Outpatient (CLI) | payer OTHER, SELFPAY ==
[2020-10-29 04:25] VITALS: BMI 28.6
== END ==
PROVIDERS: PCP Family Medicine; Referring Provider Family Medicine; Visit Provider Family Medicine
DX: I87.2 Venous insufficiency (chronic) (peripheral) (principal); L97.811 Non-pressure chronic ulcer of other part of right lower leg limited to breakdown of skin
CPT/HCPCS: 11042

== ENCOUNTER → 2021-03-23 09:06 | Outpatient (CLI) | payer OTHER, SELFPAY ==
[2020-10-29 04:25] VITALS: BMI 28.6
== END ==
PROVIDERS: PCP Family Medicine; Referring Provider Family Medicine; Visit Provider Family Medicine
DX: I87.2 Venous insufficiency (chronic) (peripheral) (principal); R60.0 Localized edema; Z87.2 Personal history of diseases of the skin and subcutaneous tissue
CPT/HCPCS: 99212; 99213

== ENCOUNTER → 2021-03-24 12:13 | Outpatient (CLI) | payer OTHER, SELFPAY ==
[2020-10-29 04:25] VITALS: BMI 28.6
--- NOTE | 2021-03-24 12:42 | DI.CT.S_ITS ---
PROCEDURE: CT ABDOMEN PELVIS WO/W CON INDICATIONS: Gross hematuria TECHNIQUE: Optional 5 mm thick noncontrast images acquired from the diaphragm to the symphysis pubis. After the administration of intravenous contrast, 5 mm thick images acquired from the diaphragm to the symphysis pubis after a 10-minute delay. 2 mm thick coronal and sagittal reformats were then performed of the kidneys and ureters. For radiation dose reduction, the following was used: automated exposure control, adjustment of mA and/or kV according to patient size. COMPARISON: None. FINDINGS: Image quality: Excellent. Lung bases: There is mild dependent atelectasis bilaterally. Heart size is normal. Urinary system: The kidneys demonstrate no discrete stones. No hydronephrosis. There is mild nonspecific perinephric stranding bilaterally. There is normal bilateral renal enhancement. There is a hypodensity likely representing a small cyst within the right kidney. Renal calyces appear normal in morphology when filled with contrast without suspicious filling defects. Opacified portions of both ureters demonstrate normal caliber. No calcified bladder stones. There is bladder wall thickening most prominent along the bladder dome with perivesicular fat stranding. There is a colovesicular fistula demonstrated along the left bladder dome. Intraluminal gas is demonstrated within the urinary bladder. Other solid organs: Evaluation of the liver demonstrates no focal hepatic lesions. The gallbladder appears within normal limits without calcified gallstones. Biliary system is non-dilated. Pancreas enhances normally. No peripancreatic fat stranding or fluid collections. No pancreatic duct dilatation. The spleen is normal in size. No adrenal nodules. Peritoneum and bowel: Small bowel loops demonstrate normal wall thickness and caliber. No pericecal inflammatory changes to suggest appendicitis. There is colonic diverticulosis with segmental colonic wall thickening and pericolonic fat stranding along the sigmoid colon likely representing sequelae of diverticulitis. As noted above, there is a colovesicular fistula extending from the sigmoid colon to the bladder dome. There is trace free fluid in the pelvis. No macroscopic free air. No discrete abscess collection. Nodes and vessels: No retroperitoneal or mesenteric adenopathy by size criteria. Aorta and inferior vena cava are normal in size. Abdominal wall: No ventral hernias. Pelvis: No pathologic free pelvic fluid. No inguinal hernias or adenopathy. Bones: No suspicious bony lesions. No vertebral body compression fractures. IMPRESSION: 1. 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 2. Bladder wall thickening with associated fat stranding and intraluminal gas consistent with cystitis. 3. Colonic diverticulosis with segmental colonic wall thickening in the sigmoid colon and pericolonic fat stranding likely represent sequelae of diverticulitis. 4. No nephrolithiasis or hydronephrosis. Dictated by: Philip Vergara M.D. on 03/24/2021 at 14:09 Approved by: Philip Vergara M.D. on 03/24/2021 at 14:16
== END ==
PROVIDERS: PCP Registered Nurse; Referring Provider Urology; Visit Provider Urology
DX: N32.1 Vesicointestinal fistula (principal); K57.30 Diverticulosis of large intestine without perforation or abscess without bleeding; R31.0 Gross hematuria; R39.89 Other symptoms and signs involving the genitourinary system
CPT/HCPCS: 74178

== ENCOUNTER → 2021-03-29 10:45 | Outpatient (CLI) | payer OTHER, SELFPAY ==
[2020-10-29 04:25] VITALS: BMI 28.6
== END ==
PROVIDERS: PCP Registered Nurse; Visit Provider Urology
DX: R30.0 Dysuria (principal); N32.1 Vesicointestinal fistula
CPT/HCPCS: 52000; 81002; 87086

== ENCOUNTER → 2021-06-29 08:54 | Outpatient (CLI) | payer OTHER, SELFPAY ==
[2021-06-01 16:50] VITALS: BMI 28.6
== END ==
PROVIDERS: PCP Registered Nurse; Visit Provider Urology
DX: R30.0 Dysuria (principal); N32.1 Vesicointestinal fistula; R39.89 Other symptoms and signs involving the genitourinary system; Z87.440 Personal history of urinary (tract) infections; Z87.448 Personal history of other diseases of urinary system
CPT/HCPCS: 81002; 87077; 87086; 87186

== ENCOUNTER → 2021-07-03 11:23 | Outpatient (CLI) | payer OTHER, SELFPAY ==
[2021-06-01 16:50] VITALS: BMI 28.6
[2021-07-03 13:41] LABS: COVID19 -Nasal RAPID Negative (Negative)
== END ==
PROVIDERS: PCP Registered Nurse; Visit Provider Surgery
DX: Z01.812 Encounter for preprocedural laboratory examination (principal); Z20.822 Contact with and (suspected) exposure to COVID-19
CPT/HCPCS: 87635; C9803

== ENCOUNTER 2021-07-05 07:31 | Inpatient (IN) | payer OTHER, SELFPAY ==
[2021-06-01 16:50] VITALS: BMI 28.6
[2021-07-04 13:42] VITALS: BMI 26.9
[2021-07-05] VITALS (19 sets, daily range): BP systolic 88–133; BP diastolic 40–90; PULSE 61–85; RESP 12–20; TEMP 36.1–36.7; O2SAT 94–97; BMI 26.9
--- NOTE | 2021-07-05 | PATH_ITS ---
[facility] Accession Number: [id number] No. of containers..01 Tissue . 01 Material submitted: . colon - SIGMOID COLON . 02 Diagnosis: Sigmoid Colon, Segmental Resection: 1. Diverticulitis with active inflammation extending to serosa with serositis. 2. Fibrous adhesions. 3. Please see comment. 4. Negative for dysplasia and malignancy. MRV 07/12/2021 1253 Local . 02 Comment: The clinical provided diagnosis of vesicointestinal fistula is noted. However, no definite fistula tract is identified. There are multiple diverticula extending deep into the submucosa and the area of active inflammation is associated with an inflamed diverticulum. . 02 Electronically signed: . Milagros Mullins MD, Pathologist NPI- [id number] . 01 Gross description: . The specimen is received in formalin, labeled sigmoid colon, and consists of a segment of colon measuring 9.2 cm in length x 3.3 cm in diameter, with an average wall thickness of 0.7 cm. The serosal surfaces are remarkable for a ragged area measuring 3.7 x 2.6 cm which is inked black. Sectioning the specimen reveals multiple diverticula which involves one of the resection margins and all of which appear intact. The mucosa is red-whitlock to pink-whitlock with normal folds. The specimen is representatively submitted as follows: . A1: Margin involved with diverticula, en face. A2: Margin, en face. A3-A4: Reps of diverticula. ([id number]) . Additional direct customer service representative sections of possible fistula tract are submitted on 07/11/2021 in A5-A7. ([id number]) /[facility] 07/11/2021 1158 Local . 02 Pathologist provided ICD-10: K57.30 . 02 CPT . 807038 Specimen Comment: A courtesy copy of this report has been sent to [phone] Performed at: 01 [facility] [address] [id number] MD Philip Zapien MD Phone: [phone] Performed at: [id number] [place], [place] [id number] MD Milagros Mullins MD Phone: [phone]
[2021-07-05] MEDS: SCOPOLAMINE 1 PATCH TOP (08:04)
[2021-07-05] MEDS: GABAPENTIN 300 MG CAPSULE PO (08:04)
[2021-07-05] MEDS: ACETAMINOPHEN 325 MG TABLET 975 MG PO (08:04)
[2021-07-05] MEDS: LACTATED RINGERS 1,000 ML 100 ML IV ×3 (08:31→16:28)
--- NOTE | 2021-07-05 08:34 | PM.PREOP ---
Pre-operative Note Interval Note History & Physical reviewed/Exam performed by Physician: Yes Changes to H&P: No
--- NOTE | 2021-07-05 08:39 | PM.PREOP ---
Pre-operative Note COVID-19 COVID-19 status: Negative Result date/Date tested (Pos, Neg/Pending): 07/03/21 Criteria for continued procedure: Expected advancement of disease process and Non-surgical alternatives not available or appropriate per current SOC Interval Note History & Physical reviewed/Exam performed by Physician: Yes Changes to H&P: No
[2021-07-05] MEDS: PIPERACILLIN/TAZO 4.5 GM in SODIUM CHLORIDE 0.9% 100 ML 200 ML IV (09:27)
--- NOTE | 2021-07-05 09:36 | PM.AN.REGBLK ---
Regional Block Pre-procedure Procedure: Continuous Epidural for Post-operative Pain Management Attending OB provider: Antelmo Mcmullen PMH/ROS narrative: 51 y/o man with a colovesicular fistula and HTN, presenting for a sigmoid colectomy and bilateral ureteral stents. PSH/Anesthesia history narrative: RLE I&D, appendectomy, colonoscopy. No personal or family issues with anesthesia. Exam narrative: MP2, normal dentition, good ROM, RRR, CTAB ASA Class: II Medications: Current Medications Generic Name Dose Route Start Last Admin Trade Name Freq PRN Reason Stop Dose Admin Lactated Ringer's 1,000 mls @ 100 mls/hr 07/05/21 06:00 07/05/21 08:31 Lactated Ringers IV 100 mls/hr CONT MARIEL Administration Lactated Ringer's 1,000 mls @ 42 mls/hr 07/05/21 08:00 Lactated Ringers IV CONT MARIEL FENT 2MCG/ML BUPIV 0.125% EPI 200 mcg in 100 mls @ 8 mls/hr 07/05/21 08:00 Fentanyl/Bupiv/Ns 2mcg/Ml - 0.125% EPIDURAL CONT MARIEL Allergies: Allergies Allergy/AdvReac Type Severity Reaction Status Date / Time No Known Drug Allergies Allergy Verified 07/05/21 08:06 Procedure Insertion date: 07/05/21 Insertion time: 09: Prep/Local: 1% lidocaine (chloroprep) Interspace: T8-9 Patient position: sitting Needle: 18 gauge Hustead Loss of resistance with: saline (with air bubble) CECIL at (cm): 7 Catheter placed at SKIN (cm): 12 Catheter in SPACE (cm): 5 Insertion: No CSF, No Blood, No Paresthesia with insertion, No Paresthesia with injection and No Test dose reaction Initial Medications TEST DOSE time: :07 TEST DOSE: 1.5% lidocaine with epinephrine 1:200k (mL): 3 BOLUS DOSE time: 09:08 BOLUS DOSE (mL): 2 BOLUS DOSE med: other (remainder of the test dose) Infusion INFUSION: 0.0625% bupivacaine and with fentanyl 2 mcg/mL Initial rate (mL/hr): 8 Post-procedure Anesthesia time START: 08:45 Anesthesia time END: 09:10 Post-procedure Anesthesia Assessment: Yes CV function: HR/BP stable, Yes Resp function: RR/sat/airway adequate, Yes Mental status appropriate and No Anesthesia complications
[2021-07-05] MEDS: FENT 2MCG/ML BUPIV 0.125% EPI 200 MCG/100 ML PLAST..BAG 8 MCG EPIDURAL (09:45)
--- NOTE | 2021-07-05 09:49 | PM.OP.1 ---
Procedure & Clinicians Procedure: Cystoscopy with bilateral ureteral catheter placement and Mann catheter placement Same procedure as scheduled: Yes Indications: This 51-year-old male was found to have a colovesical fistula and is here today for laparoscopic resection. Dr. Mcmullen has requested that bilateral ureteral lighted catheters be placed. Patient presents at this time for that and then to go on to laparoscopic resection of his colovesical fistula. Surgeon: Ricardo Urrutia Click Yes if Unassisted: Yes Anesthesia Type: General Operative Notes Findings: Urethra normal to the prostatic fossa which shows minimal to moderate obstructive character. Ureteral orifices in normal position with clear efflux. In the anterior lateral left bladder is the cause for the fistula which had some mucus protruding from it. There were no other abnormalities within the bladder the catheters passed easily into place as did the 16 Indonesian 5 cc Mann catheter which was left in place with 10 cc of sterile water in the balloon. Closure Type: not applicable Specimen(s): none sent Applied: catheter Estimated Blood Loss (mL): 0 Procedure in detail: After informed consent was obtained, the patient was identified and brought to the operating room. Patient was placed in the supine position on the operative table after epidural had been placed. Patient then had anesthesia induced and maintained. In sharing an adequate level of anesthesia the patient was transitioned to the lithotomy position, prepped, draped and prepared for transurethral procedure. After prepping draping ensuring an adequate level of anesthesia a 22 Indonesian cystoscope was passed through the urethra prostate and bladder under direct vision cystoscopy was performed findings are as noted. The left ureteral orifice was identified and the catheter or for fiberoptic sheath was passed up and into the left collecting system without difficulty. Utilizing a dual bridge a catheter with 3 black madden on its distal end was passed up and into the right collecting system. The scope was removed and the sheath left in place. Sixteen Indonesian Mann catheter was then passed alongside the she has into the bladder and the balloon filled with 10 cc of sterile water. The catheter was then placed to gravity drainage. The fiberoptic cores were then passed through the catheters right and left without difficulty. They were then secured to the Mann catheter with Tegaderm and the nipples and tips were also secured with Tegaderm. The patient then went on to laparoscopic procedure per Dr. Mcmullen which will be dictated under separate cover. The patient tolerated this portion of the procedure well and there were no complications. Complications: none Post-operative Condition: stable Disposition: other (Patient went on to laparoscopic resection was colovesical fistula per Dr. Mcmullen) Plan for aftercare: Aftercare plan will be determined by Dr. Mcmullen
--- NOTE | 2021-07-05 10:14 | SUR.OPER ---
Lithotomy on padded OR bed. Toone Pad Positioner under torso. Head on pillow, arms padded and tucked at sides. Legs secured in padded yellow fins stirrups.
[2021-07-05] MEDS: METHYLENE BLUE 50 MG/10 ML VIAL IV (12:05)
[2021-07-05] MEDS: BUPIVACAINE 0.25% (PF) 30 ML, EPINEPHrine 0.15 MG INJ (12:40)
--- NOTE | 2021-07-05 13:12 | SUR.OPER ---
Bilateral ureteral stents removed by Dr. Mcmullen prior to exiting operating room.
--- NOTE | 2021-07-05 13:32 | PM.OP.1 ---
Operative Date/Time/Diagnoses Date of procedure: 07/05/21 Time of procedure: 13:32 Pre-op diagnosis: colovesicular fistula Post-op diagnosis: same Procedure & Clinicians Procedure: laparoscopic sigmoid colectomy Same procedure as scheduled: Yes Indications: 51 y.o man history of diverticulitis who developed a colovesicular fistula here for elective sigmoid colectomy Surgeon: Antelmo Mcmullen Smt Machine Operator: Rian Hackett Anesthesia Type: General Operative Notes Findings: No clearly visible fistula. Methelyene blue instilled in bladder no leak from bladder or evidence of dye within the colon or rectum Negative leak test Specimen(s): other (sigmoid colon) Estimated Blood Loss (mL): 20 Procedure in detail: The patient was brought to the operating room and placed supine on the table. Bilateral lower extremity compression devices were applied. General anesthesia was induced and they were intubated with an endotracheal tube. They were placed in the lithotomy position and prepped and draped in sterile fashion. They received 3.375 g of Zosyn prior to skin incision. Time-out was performed Dr. Urrutia placed bilateral lighted ureteral stents and a rick catheter An infraumbilical 1 cm incision was made, the umbilical stalk was elevated, the fascia was sharply incised and the abdomen was entered atraumatically. Pneumoperitoneum was established. The laparoscope was inserted into the abdomen, inspection was made there was no evidence of injury upon entry. A 12 mm balloon trocar was placed at the umbilicus. 5 mm ports were placed suprapubic, and a 12 mm trocar in the right lower quadrant. There were significant adhesions between the the sigmoid colon and the left pelvic sidewall consistent with a history of multiple episodes of diverticulitis. The attachments between the sigmoid colon and the side wall were taken with electrocautery and dissection was carried along the white line of Toldt towards the splenic flexure. The sigmoid colon was elevated towards the abdominal wall to put the mesocolon on stretch and identify the LAURYN. The both ureters were clearly visible by lighted ureteral stents. The mesocolon was skeletonized the LAURYN pedicle was divided with the LISSETT stapler white load, the ureter was clearly visible and posterior out of harms way. The proximal point of colonic division was chosen and the junction between the descending colon and sigmoid colon where the tissue was soft and pliable. The bowel was then divided with the LISSETT stapler blue load. The distal point of transection was the rectosigmoid junction where the bowel was soft and pliable. The mesentery to the remaining sigmoid colon was ligated close to the colonic wall. A 5 cm infram umbilical incision was made and a wound protector was placed. The distal transection was made with LISSETT stapler with a bowel staple load. The specimen was passed off the field labeled sigmoid colon. A bowel clamp was placed carefully over the proximal colon and the staple line was excised. A 3-0 Prolene suture was pursestrung and a 29 mm EEA anvil was placed. The EEA stapler was advanced through the rectum and its point was deployed under direct visualization through the rectal staple line. Ensuring that the colon mesentery was without twist, the anvil and stapler were mated and the anastomosis was completed without tension. The stapler was removed and inspection of the anastomotic donuts demonstrated a normal proximal ring but a partial distal doughnut. The proximal bowel was occluded, the pelvis filled with saline and insufflation of the rectum demonstrated no leak. The abdomen was copiously irrigated and hemostasis checked. The midline fascia was closed with #1 Maxon running fashion. The subcutaneous tissues were reapproximated using 3 0 Vicryl, skin closed with 3-0 Monocryl. The fascia of the 12 mm trocar site in the right lower quadrant was closed with 0 Vicryl in figure 8 fashion. The laparoscopic port incisions were closed with 4-0 Monocryl. The skin was sealed with Dermabond. The sponge instrument count at the end of the operation was correct. The patient emerged from general anesthesia, extubated and transferred to the postoperative care unit in stable condition. Complications: none Post-operative Condition: stable Disposition: Acute Care
--- NOTE | 2021-07-05 13:36 | SUR.PHASEI ---
Dr. Nguyen here, informed her that patient is stable, hypotensive, denied pain and nausea and has been sleeping since airway was dc'd. Hand-off to Kirstin Salazar RN. Abd sites remain CDI
[2021-07-05] MEDS: LACTATED RINGERS 1,000 ML 42 ML IV (14:00)
--- NOTE | 2021-07-05 14:29 | SUR.PHASEI ---
report called to Felecia ZENDEJAS and opportunity for questions given. Pt transferring to rm [id number]. pt updated on plan of care and is agreeable. .
--- NOTE | 2021-07-05 15:10 | PC.NURSE ---
Addendum entered by Johanna Barajas R.N. 07/05/21 15:46: Once BP more stable, pt rolled to R side to check epidural site on back. Small amount of dried serosanguinous drainage noted on pad underneath pt but no active drainage or bleeding. Mann secured to R leg, draining light blue urine at this time as expected from medications administered during OR procedure. Original Note: Pt arrived at 1435, lethargic but arousable and oriented x4. No c/o pain, no n/v. Midline incision below umbilicus NATHANIEL w/steristrips and dermabond, c/d/i. Second spot with steristrips just to R of midline incision, also c/d/i. Bowel tones hypoactive. Pt c/o numbness below shins but still able to feel touch. Hypotensive but otherwise VSS. Will continue to monitor closely.
--- NOTE | 2021-07-05 15:11 | SUR.PHASEI ---
Spoke with Dr Nguyen at this time. Hold Que orders for epidural to be discontinued as Epidural discontinued in OR and did not go to the floor with it in.
[2021-07-05] MEDS: ACETAMINOPHEN 325 MG TABLET 650 MG PO (17:43)
[2021-07-05] MEDS: KETOROLAC 30 MG/ML VIAL IV (20:22)
--- NOTE | 2021-07-05 21:23 | PC.NURSE ---
Patient is alert and oriented. Breath sounds CTA with RA sat of 97%. HRR w/telemetry reading of SR. Denies nausea. BT absent and denies flatus. Midline incision/lap site to abdomen steri-stripped; no drainage or redness. Denies pain but is tender in LLQ of abdomen. Is able to move himself in bed. Gait not assessed as has not been out of bed as yet. Indwelling catheter is patent; urine is clear, light yellow w/light blue tint. Wearing bilateral calf SCD's. Fall risk score is low.
[2021-07-06] VITALS (14 sets, daily range): BP systolic 118–139; BP diastolic 71–89; PULSE 57–73; RESP 14–21; TEMP 36.4–37; O2SAT 94–99
[2021-07-06] MEDS: ACETAMINOPHEN 325 MG TABLET 650 MG PO ×3 (00:24→17:31)
[2021-07-06] MEDS: KETOROLAC 30 MG/ML VIAL IV (02:08)
[2021-07-06] MEDS: LACTATED RINGERS 1,000 ML 100 ML IV (02:09)
[2021-07-06 06:48] LABS: Add Manual Diff / Slide Review NO; Basophils Absolute Auto 0 /uL (0-100); Basophils Percent Auto 0.3 % (0-2); Eosinophils Absolute Auto 0 /uL (0-450); Hematocrit 33.5 % (41-53); Hemoglobin 11.5 g/dL (13.5-17.5); Lymphocytes Absolute Auto 1100 /uL (1100-4500); Lymphocytes Percent Auto 11.6 % (25-40); Mean Corpuscular HGB Conc 34.4 % (30-36); Mean Corpuscular Hemoglobin 29.2 PG (26-34); Monocytes Absolute Auto 500 /uL (0-900); Monocytes Percent Auto 5.5 % (3-14); Neutrophils Absolute Auto 8000 /uL (1500-7000); Neutrophils Percent Auto 82.6 % (50-75); Platelet Count 228 X10^3/uL (150-400); Red Blood Cell Count 3.94 X10^6/uL (4.5-5.9); Red Cell Distribution Width 15.6 % (11.6-14.8); White Blood Cell Count 9.6 X10^3/uL (4.5-11.0)
[2021-07-06 06:54] LABS: BUN Creatinine Ratio 11.5 (6-22); Blood Urea Nitrogen 13 mg/dL (9-20); Calcium 7.9 mg/dL (8.4-10.2); Carbon Dioxide 27 mmol/L (22-32); Chloride 110 mmol/L (98-107); Estimated Glomerular Filt Rate > 60 mL/min (>60); Glucose 109 mg/dL (70-100); HEMOLYSIS < 15 (0-50); Potassium 4.1 mmol/L (3.4-5.1); Sodium 140 mmol/L (137-145)
--- NOTE | 2021-07-06 07:39 | PC.NURSE ---
End of shift note. Care of patient from [id number]. Rates abd pain 03/13. Passing gas. Abd incision intact with skin glue, no drainage. BU draining clear yellow urine. Patient tolerated sips of water with meds.
[2021-07-06] MEDS: lisinopriL 10 MG TABLET PO (08:54)
[2021-07-06] MEDS: ENOXAPARIN 40 MG/0.4 ML SYRINGE SUBCUT (08:56)
--- NOTE | 2021-07-06 09:58 | PC.NURSE ---
Addendum entered by Johanna Barajas R.N. 07/06/21 15:50: Mann catheter changed to leg bag because pt will be going home with catheter. Education provided regarding caring for and emptying the bag. Will continue to enforce teaching. Original Note: This am pt had bright red, moderately sized, loose BM in the toilet. Dr. Mcmullen informed and said this is normal and expected after the surgery pt had yesterday. Will continue to monitor.
--- NOTE | 2021-07-06 12:13 | PT.IIE ---
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 none Employment Status Ad Writer Employed M2 PT-IP Current Condition Start: 07/06/21 12:00 Freq: Status: Active Protocol: Document 07/06/21 12:00 BC (Rec: 07/06/21 12:13 [id number]) Physical Therapy Current Condition Current Condition Evaluation Date 07/06/21 Treatment Diagnosis difficulty with ambulation Onset Date 07/05/2021 M3 PT-IP Subjective Start: 07/06/21 12:00 Freq: Status: Active Protocol: Document 07/06/21 12:00 BC (Rec: 07/06/21 12:13 [id number]) Subjective Physical Therapy Visit Type Type Initial Evaluation Visit Start Time 11:20 Visit Stop Time 11:45 Total Visit Minutes 20 Physical Therapy Visit Comments Patient Comments States he was surprised by the need of this surgery, says he had no prior pain. Patient Goals Discharge home Therapy Pain Assessment Pain When Pain Assessed At Rest Pain Present Pain Present Pain Reported Location L abdomen Intensity 3 Scale Used Numeric (0 - 10) M4 PT-IP Mobility and Gait Start: 07/06/21 12:00 Freq: Status: Active Protocol: Document 07/06/21 12:00 BC (Rec: 07/06/21 12:13 [id number]) PT-Bed Mobility Assessment Rolling Type of Rolling Log Rolling Level of Assist Independent Supine to Sit Supine to Sit Independent Sit to Supine Sit to Supine Independent Scooting Scooting to Edge of Bed Independent PT-Transfer Assessment Sit to and From Stand Sit to and from Stand Independent Equipment Transfer Assistive Device None Transfers Transfer Destination Bed,Chair Transfer Technique Stand Pivot Transfer Ability Level of Assist Independent Gait Assessment Gait Gait Assistance Required: Independent Distance (Feet) 250 Assistive Devices Assistive Device None Gait Deviations General Gait Pattern Within Normal Limits PT-Balance Assessment Sitting Balance and Reactions Static Sitting Balance Ability Normal Dynamic Sitting Balance Ability Normal Standing Balance and Reactions Static Standing Balance Ability Normal Dynamic Standing Balance Ability Good Device Used none Comments Other Balance Tests/Deviations/Treatment Slight pathway deviation when : ambulating and dual tasking ( turning head to have conversation), Pt able to regain balance I'ly without any significant LOB. M5 PT-IP Objective Assessments Start: 07/06/21 12:00 Freq: Status: Active Protocol: Document 07/06/21 12:00 (Rec: 07/06/21 12:13 [id number]) Orientation Orientation/Cognition Level of Alertness Alert Orientation Name,Date,Place,Situation Gross Range of Motion Upper Extremity ROM Assessment Within Functional Limits Lower Extremity ROM Assessment Within Functional Limits Strength Upper Extremity Strength Assessment Within Functional Limits Lower Extremity Strength Assessment Within Functional Limits Coordination Assessment Gross Coordination Gross Coordination WNL Sensation Assessment Sensation Gross Sensation WNL M7 PT-IP Assessment and Plan Start: 07/06/21 12:00 Freq: Status: Active Protocol: Document 07/06/21 12:00 (Rec: 07/06/21 12:13 [id number]) PT Summary Assessment and Plan Potential Rehabilitation Potential Excellent Status of Condition at Evaluation Stable Summary Assessment Summary Pt admitted for laproscopic sigmoid colectomy. States his PLOF was fully independent and working real time analyst. Lives with his SO and has an adult dtr in the area. Pt plans to return to work this Saturday. His CLOF is demonstrated as modif Ind to Ind mobility in room and ambulating halls. He is able to complete all basic transfers without physical support or assist. He is appropriate to d/c home when medically stable. Educated and encouraged Pt to ambulate ~3x /daily while in the hospital. He is to still notify [facility] when he wants to ambulate to ensure no IV lines/safety. He agrees. [facility] notified of recommendation that Pt ambulate I'ly with [facility] ok each time. No further skilled PT needs. Frequency of Treatment Frequency Of Treatment Discharge Precautions Other Precautions Educated on log roll. Recommendations To Nursing Amount of Assist Needed Independent Discharge Recommendations PT Discharge Recommendations Home,Home with Assistance Equipment Needed for Home Before none Discharge Transportation Needs at Discharge Private Vehicle
--- NOTE | 2021-07-06 12:43 | CM.DANOTE ---
Initial DCP Assessment Note Pt is a 51 yo male, resident of [place], now POD#1 from Rt knee surgery by Dr Ceballos Cystoscopy with bilateral ureteral catheter placement and Mann catheter placement by Dr Urrutia and lap colectomy by Dr Mcmullen PCP: Ele Morales Payer: Healthcare Management/[facility] Reviewed chart, met w/patient to introduce role and review DCP Patient plans on returning home w/assist from his oriana Donis and sherry Tabares. Denies needs from this RANGE MOUNTER at this time Plan: DC home w/family when medically cleared, via family pov, close outpatient f/u recommended KIMBERLY Mane Discharge Planning/Care Management CM Discharge Assessment Start: 07/06/21 12:28 Freq: Status: Active Protocol: Document 07/06/21 12:31 GIL (Rec: 07/06/21 12:43 GIL [id number]) Discharge Planning Assessment Assigned Valve Inserter KIMBERLY Reid DPOA/Assigned Designee Name Raymon Culver, dtr oriana Larsen Contact Information [phone], dtr [phone], oriana Advance Directives? No Advance Directives on File No History Provided By Patient,Medical Record Prior Living Arrangements House Household Members significant other,children, none Type of transporation used prior to Drives own vehicle admit Independent with ADL's Yes Is patient alert and oriented? Yes Barriers to Discharge No Comment Home w/family Discharge Plan Home Transportation Arrangement Family Referrals Initiated None needed
[2021-07-07] VITALS (8 sets, daily range): BP systolic 140–148; BP diastolic 62–89; PULSE 62–72; RESP 16–18; TEMP 36.5–36.8; O2SAT 94–98
[2021-07-07 06:15] LABS: Add Manual Diff / Slide Review NO; Basophils Absolute Auto 0 /uL (0-100); Basophils Percent Auto 0.8 % (0-2); Eosinophils Absolute Auto 0 /uL (0-450); Eosinophils Percent Auto 0.5 % (2-4); Hematocrit 33.5 % (41-53); Hemoglobin 11.4 g/dL (13.5-17.5); Lymphocytes Absolute Auto 1900 /uL (1100-4500); Lymphocytes Percent Auto 35.2 % (25-40); Mean Corpuscular Volume 85.1 fL (80-100); Monocytes Absolute Auto 400 /uL (0-900); Monocytes Percent Auto 7.3 % (3-14); Neutrophils Absolute Auto 3100 /uL (1500-7000); Neutrophils Percent Auto 56.2 % (50-75); Platelet Count 224 X10^3/uL (150-400); Red Blood Cell Count 3.94 X10^6/uL (4.5-5.9); Red Cell Distribution Width 15.5 % (11.6-14.8); White Blood Cell Count 5.4 X10^3/uL (4.5-11.0)
[2021-07-07 06:38] LABS: BUN Creatinine Ratio 12.3 (6-22); Blood Urea Nitrogen 14 mg/dL (9-20); Carbon Dioxide 31 mmol/L (22-32); Chloride 109 mmol/L (98-107); Estimated Glomerular Filt Rate > 60 mL/min (>60); Glucose 92 mg/dL (70-100); HEMOLYSIS < 15 (0-50); Potassium 3.7 mmol/L (3.4-5.1); Sodium 141 mmol/L (137-145)
[2021-07-07] MEDS: lisinopriL 10 MG TABLET PO (08:20)
[2021-07-07] MEDS: ENOXAPARIN 40 MG/0.4 ML SYRINGE SUBCUT (08:21)
--- NOTE | 2021-07-07 18:39 | PC.NURSE ---
Pt is AxOx4, independent and cooperative. VSS, no c/o pain. Pt is walking around and able to drain his own leg bag. No issues identified.
--- NOTE | 2021-07-07 19:11 | P.DS_ITS ---
History of Present Illness History of Present Illness Date Patient Seen: 07/07/21 Time Patient Seen: 19:11 Chief complaint: Colon resection Narrative: The patient underwent a sigmoid colon resection by Dr. Mcmullen on July 05, 2021. He did really well postoperatively and his diet was advanced no problems. He was discharged home with a leg bag for his Mann catheter on 07/07/2021 Discharge Providers Provider Date of admission: 07/05/21 07:31 Discharge Date: 07/07/21 Primary care physician: WILLIAMS Raygoza Consults: 07/06/21 09:25 Consult to Physical Therapy Evaluate & Treat Comment: Physician Instructions: Evaluate and Treat Discharge provider: Harry Rod MD Exam Vital Signs (past 8 hours): - 07/07/21 12:00 07/07/21 14:21 07/07/21 16:00 Temperature 97.9 F 98.2 F Pulse Rate 70 72 Respiratory Rate 17 17 Blood Pressure 140/62 148/89 H Pulse Oximetry 97 94 96 Oxygen Delivery Method Room Air Oxygen Flow Rate 0 Narrative Exam Narrative: Abdomen soft, appropriately tender to palpation Objective Labs Result Diagrams: 07/07/21 05:29 07/07/21 05:29 Labs: Laboratory Results - last 24 hr 07/07/21 07/07/21 05:29 05:29 WBC 5.4 RBC 3.94 L Hgb 11.4 L Hct 33.5 L MCV 85.1 MCH 29.0 MCHC 34.0 RDW 15.5 H Plt Count 224 Neut % (Auto) 56.2 D Lymph % (Auto) 35.2 D [place] % (Auto) 7.3 Eos % (Auto) 0.5 L Baso % (Auto) 0.8 Neut # (Auto) 3100 Lymph # (Auto) 1900 [place] # (Auto) 400 Eos # (Auto) 0 Baso # (Auto) 0 Sodium 141 Potassium 3.7 Chloride 109 H Carbon Dioxide 31 BUN 14 Creatinine 1.14 Estimated GFR > 60 BUN/Creatinine Ratio 12.3 Glucose 92 Calcium 8.0 L PFSH Medical History Atopic dermatitis Black tarry stools Cellulitis of right leg Diarrhea E. coli urinary tract infection Exposure to chlamydia Gross hematuria Hypertension Low back pain Pneumaturia Stomach pain Urinary tract infection Vertigo Surgical History (Updated 07/04/21 @ 13:50 by Kiesha Lozano RN) History of surgical procedure (10/29/20) Social History household members: significant other, children and none Smoking Status: Never smoker alcohol intake: never Discharge Plan Discharge Plan Patient Disposition: Home Provider Discharge Comment: No lifting greater than 20 lb for 2 weeks. Okay to remove the outer dressing and shower after 24 hours. Leave the Steri-Strips on until they start to peel off in 1-2 weeks. Discharge orders & Medications Prescriptions: New hydrocodone-acetaminophen 5-325 mg tablet 1 tab PO Q8H PRN (Reason: pain) Qty: 14 0RF Continued amoxicillin-pot clavulanate [Augmentin] 500-125 mg tablet 1 tab PO BID Qty: 20 0RF lisinopril 10 mg tablet 10 mg PO DAILY 0RF Follow up/Referrals: Ele Morales ARNP [Primary Care Provider] - Visit Report/Discharge Packet Instructions: How to Care for Your Mann Catheter -- Male Discharge Data Primary Care Provider: Ele Morales
--- NOTE | 2021-07-07 19:56 | PC.NURSE ---
Discharge Note- Patient D/C''ed home per surgeon. Discharge instructions and education reviewed with patient and signed. IV line removed and bandage applied. PAtient packed up all personal belongings. Patient taken to private car via wheelchair, with all personal belongings, by Joelle Paige CNA at 1954.
== END 2021-07-07 19:55 | disposition home or self-care (01) | DRG 660 ==
LOC: AC 08:32 → ICU 12:51 → AC 12:55
PROVIDERS: Urology; Admitting Provider Surgery; PCP Registered Nurse; Referring Provider Surgery; Visit Provider Surgery
PROC: 0T788DZ Dilation of Bilateral Ureters with Intraluminal Device, Via Natural or Artificial Opening Endoscopic (ICD-10-PCS; principal; 2021-07-05 08:45)
PROC: 0DTE0ZZ Resection of Large Intestine, Open Approach (ICD-10-PCS; 2021-07-05 08:45)
DX: N32.1 Vesicointestinal fistula (principal); K57.32 Diverticulitis of large intestine without perforation or abscess without bleeding; K66.0 Peritoneal adhesions (postprocedural) (postinfection); I10 Essential (primary) hypertension; Z87.440 Personal history of urinary (tract) infections; Z20.822 Contact with and (suspected) exposure to COVID-19
CPT/HCPCS: 36415; 44204; 52005; 80048; 82962; 85025; 87635; 94760; 97161; C9803; J0171; J0330; J1100; J1650; J1885; J2250; J2405; J2543; J2704; Q9968

== ENCOUNTER → 2021-07-17 07:32 | Outpatient (CLI) | payer OTHER, SELFPAY ==
[2021-07-05 17:00] VITALS: BMI 26.9
--- NOTE | 2021-07-17 08:32 | DI.CT.S_ITS ---
PROCEDURE: CT CYSTOGRAM INDICATIONS: Post operative for vesicointestinal fistula TECHNIQUE: Both before and after gravity instillation of approximately 200 cc 10% Isovue contrast solution into the bladder through a Mann catheter, 5 mm axial images acquired from the bladder dome to the symphysis. 5 mm thick coronal and sagittal reformats were acquired. For radiation dose reduction, the following was used: automated exposure control, adjustment of mA and/or kV according to patient size. COMPARISON: None. FINDINGS: Image quality: Excellent. Genitourinary: A Mann catheter is present in the urinary bladder. About 200 cc distends the urinary bladder. There is asymmetric thickening of the superior left bladder wall. There is no extra vesicular extravasation of contrast. No vesicoureteral reflux. No extravasation of contrast or vesicoureteral reflux upon emptying of the urinary bladder. Distal portions of both ureters are normal in caliber. Peritoneum and bowel: Mid sigmoid bowel anastomosis staple line is seen. Mild pericolonic inflammatory changes and slight fascial thickening in the left anterior pelvis and over the urinary bladder. There is no extraluminal gas or fluid collection. Pelvic small bowel loops are normal. Nodes and vessels: No iliac, pelvic, or inguinal adenopathy by size criteria. Iliac vessels are normal in size. Bones: No suspicious bony lesions. Miscellaneous: No inguinal hernias. IMPRESSION: 1. No evidence of bladder injury post distension of the urinary bladder with contrast. 2. Mild left superior bladder wall thickening, potentially residual scar. 3. Mid sigmoid bowel anastomosis appears intact with mild surrounding residual inflammatory change. 4. No pelvic abscess or adenopathy. 5. Findings called to the office of Dr. Urrutia at 20:45 hours 07/18/21. Dictated by: Cici Ball M.D. on 07/18/2021 at 8:14 Approved by: Cici Ball M.D. on 07/18/2021 at 8:47
== END ==
PROVIDERS: PCP Registered Nurse; Referring Provider Urology; Visit Provider Urology
DX: N32.1 Vesicointestinal fistula (principal); N39.0 Urinary tract infection, site not specified; B96.20 Unspecified Escherichia coli [E. coli] as the cause of diseases classified elsewhere; R31.0 Gross hematuria; Z98.0 Intestinal bypass and anastomosis status
CPT/HCPCS: 72194

== ENCOUNTER → 2021-07-18 09:58 | Outpatient (CLI) | payer OTHER, SELFPAY ==
[2021-07-05 17:00] VITALS: BMI 26.9
== END ==
PROVIDERS: PCP Registered Nurse; Visit Provider Urology
DX: R30.0 Dysuria (principal); N32.1 Vesicointestinal fistula; R82.81 Pyuria; R31.29 Other microscopic hematuria
CPT/HCPCS: 81002; 87077; 87086; 87186

== ENCOUNTER → 2021-07-25 15:42 | Outpatient (CLI) | payer OTHER, SELFPAY ==
[2021-07-05 17:00] VITALS: BMI 26.9
--- NOTE | 2021-07-25 15:45 | DI.CT.S_ITS ---
PROCEDURE: CT CYSTOGRAM INDICATIONS: Hematuria, unspecified TECHNIQUE: Both before and after gravity instillation of 10% Isovue contrast solution into the bladder through a Mann catheter, 5 mm axial images acquired from the bladder dome to the symphysis. 5 mm thick coronal and sagittal reformats were acquired. For radiation dose reduction, the following was used: automated exposure control, adjustment of mA and/or kV according to patient size. COMPARISON: [facility], CT, CT CYSTOGRAM, 07/17/2021, 7:45. FINDINGS: Image quality: Excellent. Genitourinary: Mann catheter is present within urinary bladder unchanged from prior study. Approximately 150 cc of Isovue contrast is seen distending the urinary bladder. Asymmetric thickening of left superior bladder wall is again seen and unchanged. No contrast extravasation. Distal portions of both ureters are normal in caliber. No vesical ureteral reflux. No extravasation of contrast or reflux is seen upon emptying of the urinary bladder. Peritoneum and bowel: Mid sigmoid bowel anastomosis staple line is again seen and unchanged. Previously described mild pericolonic inflammatory changes and slight fascial thickening in left anterior pelvis is no longer seen on the current study. No evidence of bowel obstruction or abnormal bowel wall thickening. No free fluid or free air. Nodes and vessels: No iliac, pelvic, or inguinal adenopathy by size criteria. Iliac vessels are normal in size. Bones: No suspicious bony lesions. Miscellaneous: No inguinal hernias. IMPRESSION: 1. No evidence of bladder injury. No contrast extravasation or vesical ureteral reflux. 2. Asymmetric left superior bladder wall thickening unchanged from prior study and may represent residual scarring. 3. Interval resolution of previously noted inflammatory changes adjacent to mid sigmoid anastomosis. 4. No abscess collection. No pelvic adenopathy. No free fluid or free air. Dictated by: Pollo Herbert M.D. on 07/25/2021 at 16:48 Approved by: Pollo Herbert M.D. on 07/25/2021 at 16:58
== END ==
PROVIDERS: PCP Registered Nurse; Referring Provider Urology; Visit Provider Urology
DX: N32.1 Vesicointestinal fistula (principal); R31.9 Hematuria, unspecified
CPT/HCPCS: 72194

== ENCOUNTER 2023-07-30 12:07 | Emergency (ER) | payer OTHER, SELFPAY ==
[2021-07-25 17:22] VITALS: BMI 26.9
[2023-07-30] VITALS (68 sets, daily range): BP systolic 124–235; BP diastolic 69–122; PULSE 45–74; RESP 15–25; TEMP 36.7; O2SAT 92–100; BMI 30.1
--- NOTE | 2023-07-30 12:15 | DI.RAD.S_ITS ---
PROCEDURE: XR CHEST 1V INDICATIONS: chest pain TECHNIQUE: One view of the chest was acquired. COMPARISON: [facility], CR, XR CHEST 1V, 04/13/2019, 22:03. FINDINGS: Surgical changes and devices: None. Lungs and pleura: Lungs are clear. No pleural effusions or pneumothorax. Mediastinum: Mediastinal contours appear normal. Heart size is normal. Bones and chest wall: No suspicious bony lesions. Overlying soft tissues appear unremarkable. IMPRESSION: No acute cardiopulmonary abnormality is seen. Dictated by: Annabelle Mazariegos M.D. on 07/30/2023 at 13:46 Approved by: Annabelle Mazariegos M.D. on 07/30/2023 at 13:47
[2023-07-30] MEDS: ASPIRIN 81 MG CHEW TAB 324 MG PO (12:20)
--- NOTE | 2023-07-30 12:20 | ED_ITS ---
HPI - Chest Pain General Chief Complaint: Chest Pain Stated Complaint: chest pain Time Seen by Provider: 07/30/23 12:17 Source: patient Mode of arrival: Ambulatory Limitations: no limitations History of Present Illness HPI narrative: 53-year-old male here for evaluation of chest discomfort. He states that the chest discomfort started somewhat suddenly approximately 15-30 minutes ago. Is on the left side of his chest radiating to the right side and up to his right ear. Has never had symptoms like this in the past. Does have history of high blood pressure and high cholesterol. He did take his blood pressure medicine this morning. No shortness of breath. No skin rashes. Has not tried anything for the symptoms prior to arrival. Discomfort potentially worse with palpation not worse with movement. Related Data Home Medications Medication Instructions Recorded Confirmed lisinopril 10 mg tablet 10 mg PO DAILY 06/29/21 08/31/21 Allergies Allergy/AdvReac Type Severity Reaction Status Date / Time No Known Drug Allergies Allergy Verified 07/30/23 12:16 Review of Systems Review of Systems ROS Unobtainable: All systems reviewed & are unremarkable except as noted in HPI and below Patient History Medical History E. coli urinary tract infection Urinary tract infection Low back pain Black tarry stools Exposure to chlamydia Cellulitis of right leg Atopic dermatitis Vertigo Stomach pain Hypertension Diarrhea Pneumaturia Gross hematuria Surgical History (Updated 07/04/21 @ 13:50 by Kiesha Lozano RN) History of surgical procedure (10/29/20) Social History household members: significant other, children and none Smoking Status: Never smoker alcohol intake: never Smoking Status: Never smoker alcohol intake frequency: 0-2 drinks per day Substance Use Type: does not use Exam Initial Vital Signs Initial Vital Signs: Vital Signs Temperature 98.1 F 07/30/23 12:08 Pulse Rate 60 07/30/23 12:08 Respiratory Rate 18 07/30/23 12:08 Blood Pressure 235/122 H 07/30/23 12:08 Pulse Oximetry 100 07/30/23 12:08 Oxygen Delivery Method Room Air 07/30/23 12:08 Const General: cooperative and comfortable Other: Uncomfortable. HENMT Head: normal to inspection and normocephalic Chest Chest: No crepitus and No tenderness Resp Effort & Inspection: normal respiratory effort Auscultation: clear to auscultation bilaterally Cardio Rate: regular rate Rhythm: regular rhythm GI Inspection: normal to inspection and non-distended Palpation: soft Neuro General: patient alert and patient awake Extrem General: No edema Course Orders Ordered: ED Orders 07/30/23 12:14 Complete Blood Count AUTO DIFF Stat Comprehensive Metabolic Panel Stat Lipase Stat Magnesium Stat PTT Partial Thromboplastin Gerson Stat Prothrombin Time INR Stat Troponin & CK Cardiac Panel Stat 07/30/23 12:15 XR chest 1V Stat EKG-12 Lead Stat 07/30/23 14:11 Trop I [Troponin I] Stat 07/30/23 15:26 CT angio chest abdomen pelvis Stat Nicardipine HCl 25 mg/ Sodium (Chloride) 250 mls @ 50 mls/hr IV TITRATE MARIEL; Protocol Last Titration: 07/30/23 17:12 Dose: 10 mg/hr, 100 mls/hr Documented By: Titration: 07/30/23 16:57 Dose: 7.5 mg/hr, 75 mls/hr Documented By: Admin: 07/30/23 16:44 Dose: 5 mg/hr, 50 mls/hr Documented By: Discontinued Medications Hydrocodone Bitart/Acetaminophen (Hydrocodone/Acet 5/325 Tablet) 1 tab PO NOW ONE Stop: 07/30/23 12:40 Last Admin: 07/30/23 12:43 Dose: 1 tab Documented By: Aspirin (Aspirin 81 Mg Chew Tab) 324 mg PO NOW ONE Stop: 07/30/23 12:16 Last Admin: 07/30/23 12:20 Dose: 324 mg Documented By: Aspirin (Aspirin 81 Mg Chew Tab) 324 mg PO NOW ONE Stop: 07/30/23 12:23 Last Admin: 07/30/23 12:23 Dose: Not Given Documented By: Hydromorphone HCl (Hydromorphone 1 Mg Inj) 1 mg IV NOW ONE Stop: 07/30/23 14:20 Last Admin: 07/30/23 14:40 Dose: 1 mg Documented By: Labetalol HCl (Labetalol 20 Mg/4 Ml Syringe) 10 mg IV NOW ONE Stop: 07/30/23 13:20 Last Admin: 07/30/23 13:28 Dose: Not Given Documented By: Morphine Sulfate (Morphine 4 Mg/Ml Inj) 4 mg IV NOW ONE Stop: 07/30/23 13:20 Last Admin: 07/30/23 13:22 Dose: 4 mg Documented By: Nitroglycerin (Nitroglycerin 0.4 Mg Sl Tab) 0.4 mg SL [id number] PRN PRN Reason: Chest Pain Last Admin: 07/30/23 12:32 Dose: 0.4 mg Documented By: Admin: 07/30/23 12:27 Dose: 0.4 mg Documented By: Admin: 07/30/23 12:22 Dose: 0.4 mg Documented By: Nitroglycerin (Nitroglycerin Oint 1 Inch/Gm Oint...G.) 1 inch TOP NOW ONE Stop: 07/30/23 14:20 Last Admin: 07/30/23 14:41 Dose: 1 inch Documented By: Vital Signs Vital signs: Vital Signs - 8 hr 07/30/23 12:08 07/30/23 12:22 07/30/23 12:25 Temperature 98.1 F Pulse Rate 60 57 L 57 L Respiratory Rate 18 21 Blood Pressure 235/122 H 216/102 H Pulse Oximetry 100 99 Oxygen Delivery Method Room Air 07/30/23 12:27 07/30/23 12:30 07/30/23 12:30 Temperature Pulse Rate 58 L 59 L Respiratory Rate 21 Blood Pressure 204/95 H 160/82 H Pulse Oximetry 95 Oxygen Delivery Method 07/30/23 12:32 07/30/23 12:32 07/30/23 12:32 Temperature Pulse Rate 56 L 57 L Respiratory Rate 18 Blood Pressure 156/88 H 156/88 H Pulse Oximetry 97 Oxygen Delivery Method 07/30/23 12:35 07/30/23 12:40 07/30/23 12:40 Temperature Pulse Rate 51 L Respiratory Rate 22 Blood Pressure 162/92 H 165/83 H Pulse Oximetry 96 Oxygen Delivery Method 07/30/23 12:45 07/30/23 12:45 07/30/23 13:00 Temperature Pulse Rate 51 L 54 L Respiratory Rate 18 22 Blood Pressure 180/89 H Pulse Oximetry 98 99 Oxygen Delivery Method 07/30/23 13:01 07/30/23 13:01 07/30/23 13:15 Temperature Pulse Rate 52 L Respiratory Rate Blood Pressure 184/100 H 184/98 H Pulse Oximetry 99 Oxygen Delivery Method 07/30/23 13:15 07/30/23 13:30 07/30/23 13:30 Temperature Pulse Rate 49 L 48 L Respiratory Rate 17 Blood Pressure 180/97 H Pulse Oximetry 99 98 Oxygen Delivery Method 07/30/23 13:45 07/30/23 13:45 07/30/23 14:00 Temperature Pulse Rate 49 L 48 L Respiratory Rate 21 15 Blood Pressure 181/101 H Pulse Oximetry 99 99 Oxygen Delivery Method 07/30/23 14:00 07/30/23 14:15 07/30/23 14:15 Temperature Pulse Rate 48 L Respiratory Rate 22 Blood Pressure 170/94 H 194/99 H Pulse Oximetry 98 Oxygen Delivery Method 07/30/23 14:30 07/30/23 14:30 07/30/23 14:41 Temperature Pulse Rate 48 L 48 L Respiratory Rate 23 Blood Pressure 180/101 H 180/101 H Pulse Oximetry 98 Oxygen Delivery Method 07/30/23 14:45 07/30/23 14:45 07/30/23 15:00 Temperature Pulse Rate 47 L Respiratory Rate 17 Blood Pressure 165/94 H 167/92 H Pulse Oximetry 96 Oxygen Delivery Method 07/30/23 15:00 07/30/23 15:15 07/30/23 15:15 Temperature Pulse Rate 48 L 50 L Respiratory Rate 17 16 Blood Pressure 166/86 H Pulse Oximetry 95 95 Oxygen Delivery Method 07/30/23 15:30 07/30/23 16:32 07/30/23 16:33 Temperature Pulse Rate 47 L 56 L Respiratory Rate 20 Blood Pressure 160/94 H Pulse Oximetry 95 98 Oxygen Delivery Method 07/30/23 16:33 07/30/23 16:43 07/30/23 16:43 Temperature Pulse Rate 52 L 49 L Respiratory Rate 17 17 Blood Pressure 176/98 H Pulse Oximetry 97 97 Oxygen Delivery Method 07/30/23 16:45 07/30/23 16:45 07/30/23 16:50 Temperature Pulse Rate 45 L 47 L Respiratory Rate 17 17 Blood Pressure 173/96 H Pulse Oximetry 96 96 Oxygen Delivery Method 07/30/23 16:50 07/30/23 16:55 07/30/23 16:55 Temperature Pulse Rate 48 L Respiratory Rate 17 Blood Pressure 171/98 H 158/91 H Pulse Oximetry 95 Oxygen Delivery Method 07/30/23 17:00 07/30/23 17:00 07/30/23 17:05 Temperature Pulse Rate 53 L 53 L Respiratory Rate 17 17 Blood Pressure 148/82 H Pulse Oximetry 94 93 Oxygen Delivery Method 07/30/23 17:05 07/30/23 17:10 07/30/23 17:10 Temperature Pulse Rate 53 L Respiratory Rate 17 Blood Pressure 144/79 H 151/87 H Pulse Oximetry 93 Oxygen Delivery Method 07/30/23 17:15 07/30/23 17:15 07/30/23 17:20 Temperature Pulse Rate 53 L 54 L Respiratory Rate 17 18 Blood Pressure 137/81 Pulse Oximetry 93 93 Oxygen Delivery Method 07/30/23 17:20 07/30/23 17:25 07/30/23 17:25 Temperature Pulse Rate 53 L Respiratory Rate 18 Blood Pressure 132/79 134/79 Pulse Oximetry 92 Oxygen Delivery Method 07/30/23 17:30 07/30/23 17:30 07/30/23 17:35 Temperature Pulse Rate 54 L 54 L Respiratory Rate 17 17 Blood Pressure 137/83 Pulse Oximetry 93 93 Oxygen Delivery Method 07/30/23 17:35 07/30/23 17:40 07/30/23 17:40 Temperature Pulse Rate 53 L Respiratory Rate 18 Blood Pressure 135/83 135/81 Pulse Oximetry 93 Oxygen Delivery Method 07/30/23 17:45 07/30/23 17:45 07/30/23 17:50 Temperature Pulse Rate 56 L 66 Respiratory Rate 17 17 Blood Pressure 134/80 Pulse Oximetry 93 95 Oxygen Delivery Method 07/30/23 17:50 07/30/23 17:55 07/30/23 17:55 Temperature Pulse Rate 65 Respiratory Rate 19 Blood Pressure 130/78 134/73 Pulse Oximetry 95 Oxygen Delivery Method 07/30/23 18:00 07/30/23 18:00 Temperature Pulse Rate 66 Respiratory Rate 21 Blood Pressure 140/83 Pulse Oximetry 95 Oxygen Delivery Method MDM - Chest Pain Lab Data Attestation: I reviewed the patient's lab results. 07/30/23 12:14 07/30/23 12:14 Labs: Lab Results 07/30/23 07/30/23 Range/Units 12:14 14:11 WBC 6.5 (4.5-11.0) X10^3/uL RBC 4.78 (4.5-5.9) X10^6/uL Hgb 14.0 (13.5-17.5) g/dL Hct 41.0 (41-53) % MCV 85.6 (80-100) fL MCH 29.2 (26-34) PG MCHC 34.1 (30-36) % RDW 15.7 H (11.6-14.8) % Plt Count 262 (150-400) X10^3/uL Neut % (Auto) 52.5 (50-75) % Lymph % (Auto) 38.5 (25-40) % Talbot % (Auto) 5.9 (3-14) % Eos % (Auto) 2.1 (2-4) % Baso % (Auto) 1.0 (0-2) % Neut # (Auto) 3400 (3907-3594) /uL Lymph # (Auto) 2500 (2148-3172) /uL Talbot # (Auto) 400 (0-900) /uL Eos # (Auto) 100 (0-450) /uL Baso # (Auto) 100 (0-100) /uL PT 11.2 (9.4-12.5) SECONDS INR 1.0 (0.9-1.3) APTT 43 H (25.1-36.5) SECONDS Sodium 140 (137-145) mmol/L Potassium 3.5 (3.4-5.1) mmol/L Chloride 107 (98-107) mmol/L Carbon Dioxide 27 (22-32) mmol/L BUN 15 (9-20) mg/dL Creatinine 1.14 (0.66-1.25) mg/dL Estimated GFR > 60 (>60) mL/min BUN/Creatinine Ratio 13.2 (6-22) Glucose 131 H (70-100) mg/dL Calcium 8.3 L (8.4-10.2) mg/dL Magnesium 2.1 (1.6-2.3) mg/dL Total Bilirubin 0.9 (0.2-1.3) mg/dL AST 45 (17-59) IU/L ALT 39 (<50) IU/L Alkaline Phosphatase 91 (38-126) U/L Total Creatine Kinase 244 H (55-170) U/L Troponin I 0.019 0.018 (0.01-0.034) ng/mL Total Protein 7.1 (6.3-8.2) g/dL Albumin 4.3 (3.5-5.0) g/dL Globulin 2.8 (1.7-4.1) g/dL Albumin/Globulin Ratio 1.5 (1.0-2.8) Lipase 235 (23-300) U/L Imaging Data Chest x-ray: Radiologist's Impression: PROCEDURE: XR CHEST 1V INDICATIONS: chest pain TECHNIQUE: One view of the chest was acquired. COMPARISON: [facility], , XR CHEST 1V, 04/13/2019, 22:03. FINDINGS: Surgical changes and devices: None. Lungs and pleura: Lungs are clear. No pleural effusions or pneumothorax. Mediastinum: Mediastinal contours appear normal. Heart size is normal. Bones and chest wall: No suspicious bony lesions. Overlying soft tissues appear unremarkable. IMPRESSION: No acute cardiopulmonary abnormality is seen. CTA chest abd pelvis: Radiologist's Impression: PROCEDURE: CT ANGIO CHEST ABDOMEN PELVIS INDICATIONS: eval for TAD TECHNIQUE: Precontrast 5 mm thick sections acquired from the lung apices to the iliac crests. After the administration of intravenous contrast, 2.5 mm thick sections again acquired from the lung apices to the iliac crests. Maximum intensity projection (MIP) oblique sagittal and coronal reformats were then acquired. For radiation dose reduction, the following was used: automated exposure control. COMPARISON: None. FINDINGS: Image quality: Diagnostic. AORTA: Intramural hematoma of the thoracic aorta, beginning just distal to the left internal carotid artery origin, terminating within the distal descending aorta. CHEST: Lower Neck: No enlarged lymph nodes. Thyroid: No thyroid nodules which require sonographic evaluation. Axillae: No enlarged lymph nodes. Chest Wall: Unremarkable. Lungs and Pleura: No pneumothorax or pleural effusions. 1 centimeter nodule in the right upper lobe (series 6, image 114). Bibasilar atelectasis. Heart: Heart size is enlarged. No pericardial effusion. Thoracic Vessels: Pulmonary arteries demonstrate normal size. Mediastinum and Vilma: No enlarged lymph nodes. Esophagus: No wall thickening. No hiatal hernia. ABDOMEN: Liver: No solid mass. Gallbladder: No radiopaque gallstones or wall thickening. Biliary ducts: No biliary dilation. Pancreas: No ductal dilation. Spleen: Size is within normal limits. Adrenal Glands: No adrenal nodules. Kidneys and Ureters: No hydronephrosis. No solid mass. No complex renal cystic lesion which requires follow up. Stomach and Bowel: Normal colonic caliber, without significant wall thickening. Partial colectomy. Peritoneum: No abnormal intraperitoneal fluid. No free air. Ventral Wall: No hernia. Abdominal Nodes: No retroperitoneal or mesenteric adenopathy by size criteria. Vessels: Inferior vena cava is normal in size. PELVIS: Pelvic Organs: Unremarkable. Bladder: Unremarkable. Pelvic Nodes: No enlarged lymph nodes. Miscellaneous: No inguinal hernias are seen. Bones: Unremarkable. IMPRESSION: Intramural hematoma originating distal to the aortic arch vessels, terminating within the descending aorta. No evidence of rupture. 1 centimeter solid nodule in the right upper lobe, indeterminate in the setting of prior malignancy. Consider 3 month follow-up with low-dose chest CT. Findings discussed with Dr. Hickey at 4:23 p.m. On 07/30/2023 ECG Data Attestation: I personally reviewed and interpreted this ECG as follows: Interpretation: Sinus rhythm Ventricular rate is 62 Normal axis Normal QRS Normal QTC No ST T wave changes MDM Narrative Medical decision making narrative: Patient arrives significantly hypertensive with a fairly sudden onset of chest discomfort. Has had 2- troponins. Nonspecific changes on his EKG. Chest x-ray is unremarkable. After nitroglycerin his chest pain did improve somewhat in his blood pressure improved although the blood pressure then elevated in his chest pain came back. He was given multiple doses of pain medication. Was given nitro paste. Which improved his blood pressure somewhat although he still continued to have chest pain. I discuss the case with hospitalist at [facility] who recommended a CT scan to evaluate for dissection. Initially there was some concern about dissection based on the CT scan here although I did discuss the case with Dr. Maki with vascular surgery at [facility] who seem to think that this would potentially be more aneurysmal rather than a dissection and potentially even a anatomic variant. Patient was switch to nicardipine drip which improved his blood pressure tremendously. His chest discomfort also improved. Given his lack of cardiovascular history, his difficult to control high blood pressure and the findings of the CT scan patient would be best transferred to facility that has subspecialty consultation. I did discuss all this with the patient. He was stable for transport. He expressed understanding and agreement. Critical Care Time Critical Care Time Critical Care Time: Yes Total Critical Care Time: 40 Attestation: The high probability of a clinically significant, sudden or life threatening deterioration of the [cardiovascular] system(s) required my full and direct attention, intervention and personal management. The aggregate critical care time was [40] minutes. This time is in addition to time spent performing reported procedures but includes the following: [x] Data Review and interpretation [x] Patient assessment and monitoring of vital signs [x] Documentation [x] Medication orders and management Discharge Plan Departure Patient Disposition: [facility] Clinical Impression: Hypertensive emergency, Chest pain Prescriptions: No Action lisinopril 10 mg tablet 10 mg PO DAILY Referrals: Ele Morales ARNP [Primary Care Provider] -
[2023-07-30] MEDS: NITROGLYCERIN 0.4 MG SL TAB SL ×3 (12:22→12:32)
[2023-07-30 12:26] LABS: Add Manual Diff / Slide Review NO; Basophils Absolute Auto 100 /uL (0-100); Eosinophils Absolute Auto 100 /uL (0-450); Eosinophils Percent Auto 2.1 % (2-4); Lymphocytes Absolute Auto 2500 /uL (1100-4500); Lymphocytes Percent Auto 38.5 % (25-40); Mean Corpuscular HGB Conc 34.1 % (30-36); Mean Corpuscular Hemoglobin 29.2 PG (26-34); Mean Corpuscular Volume 85.6 fL (80-100); Monocytes Absolute Auto 400 /uL (0-900); Monocytes Percent Auto 5.9 % (3-14); Neutrophils Absolute Auto 3400 /uL (1500-7000); Neutrophils Percent Auto 52.5 % (50-75); Platelet Count 262 X10^3/uL (150-400); Red Blood Cell Count 4.78 X10^6/uL (4.5-5.9); Red Cell Distribution Width 15.7 % (11.6-14.8); White Blood Cell Count 6.5 X10^3/uL (4.5-11.0)
[2023-07-30 12:41] LABS: Prothrombin Time 11.2 SECONDS (9.4-12.5)
[2023-07-30] MEDS: HYDROCODONE/ACET 5/325 TABLET 1 TAB PO (12:43)
[2023-07-30 12:44] LABS: PTT Partial Thromboplastin Tim 43 SECONDS (25.1-36.5)
[2023-07-30 12:57] LABS: Alanine Aminotransferase 39 IU/L (<50); Albumin 4.3 g/dL (3.5-5.0); Albumin Globulin Ratio 1.5 (1.0-2.8); Alkaline Phosphatase 91 U/L (38-126); Aspartate Aminotransferase 45 IU/L (17-59); BUN Creatinine Ratio 13.2 (6-22); Bilirubin Total 0.9 mg/dL (0.2-1.3); Blood Urea Nitrogen 15 mg/dL (9-20); Calcium 8.3 mg/dL (8.4-10.2); Carbon Dioxide 27 mmol/L (22-32); Chloride 107 mmol/L (98-107); Creatine Kinase 244 U/L (55-170); Estimated Glomerular Filt Rate > 60 mL/min (>60); Globulin 2.8 g/dL (1.7-4.1); Glucose 131 mg/dL (70-100); HEMOLYSIS 22 (0-50); Lipase 235 U/L (23-300); Magnesium 2.1 mg/dL (1.6-2.3); Potassium 3.5 mmol/L (3.4-5.1); Sodium 140 mmol/L (137-145); Total Protein 7.1 g/dL (6.3-8.2)
[2023-07-30 13:09] LABS: Troponin I 0.019 ng/mL (0.01-0.034)
[2023-07-30] MEDS: MORPHINE 4 MG/ML INJ IV (13:22)
[2023-07-30 14:39] LABS: Troponin I 0.018 ng/mL (0.01-0.034)
[2023-07-30] MEDS: HYDROMORPHONE 1 MG INJ IV (14:40)
[2023-07-30] MEDS: NITROGLYCERIN OINT 1 INCH/GM OINT...G. TOP (14:41)
--- NOTE | 2023-07-30 15:26 | DI.CT.S_ITS ---
PROCEDURE: CT ANGIO CHEST ABDOMEN PELVIS INDICATIONS: eval for TAD TECHNIQUE: Precontrast 5 mm thick sections acquired from the lung apices to the iliac crests. After the administration of intravenous contrast, 2.5 mm thick sections again acquired from the lung apices to the iliac crests. Maximum intensity projection (MIP) oblique sagittal and coronal reformats were then acquired. For radiation dose reduction, the following was used: automated exposure control. COMPARISON: None. FINDINGS: Image quality: Diagnostic. AORTA: Intramural hematoma of the thoracic aorta, beginning just distal to the left internal carotid artery origin, terminating within the distal descending aorta. CHEST: Lower Neck: No enlarged lymph nodes. Thyroid: No thyroid nodules which require sonographic evaluation. Axillae: No enlarged lymph nodes. Chest Wall: Unremarkable. Lungs and Pleura: No pneumothorax or pleural effusions. 1 centimeter nodule in the right upper lobe (series 6, image 114). Bibasilar atelectasis. Heart: Heart size is enlarged. No pericardial effusion. Thoracic Vessels: Pulmonary arteries demonstrate normal size. Mediastinum and Vilma: No enlarged lymph nodes. Esophagus: No wall thickening. No hiatal hernia. ABDOMEN: Liver: No solid mass. Gallbladder: No radiopaque gallstones or wall thickening. Biliary ducts: No biliary dilation. Pancreas: No ductal dilation. Spleen: Size is within normal limits. Adrenal Glands: No adrenal nodules. Kidneys and Ureters: No hydronephrosis. No solid mass. No complex renal cystic lesion which requires follow up. Stomach and Bowel: Normal colonic caliber, without significant wall thickening. Partial colectomy. Peritoneum: No abnormal intraperitoneal fluid. No free air. Ventral Wall: No hernia. Abdominal Nodes: No retroperitoneal or mesenteric adenopathy by size criteria. Vessels: Inferior vena cava is normal in size. PELVIS: Pelvic Organs: Unremarkable. Bladder: Unremarkable. Pelvic Nodes: No enlarged lymph nodes. Miscellaneous: No inguinal hernias are seen. Bones: Unremarkable. IMPRESSION: Intramural hematoma originating distal to the aortic arch vessels, terminating within the descending aorta. No evidence of rupture. 1 centimeter solid nodule in the right upper lobe, indeterminate in the setting of prior malignancy. Consider 3 month follow-up with low-dose chest CT. Findings discussed with Dr. Hickey at 4:23 p.m. On 07/30/2023. Dictated by: Dariel Cortes M.D. on 07/30/2023 at 16:20 Approved by: Dariel Cortes M.D. on 07/30/2023 at 16:27
[2023-07-30] MEDS: NICARDIPINE 25 MG in SODIUM CHLORIDE 0.9% 240 ML 50 MG IV (16:44)
--- NOTE | 2023-07-30 16:52 | PC.NURSE ---
Nitroglycerin patch removed off left chest prior to admin of nicardipine drip at 1644, per MAR
[2023-07-30] MEDS: NICARDIPINE 25 MG in SODIUM CHLORIDE 0.9% 240 ML 100 MG IV ×2 (19:20→20:27)
[2023-07-30] MEDS: ONDANSETRON 4 MG/2 ML INJ IV (20:14)
== END 2023-07-30 20:38 | disposition short-term general hospital (02) ==
PROVIDERS: Emergency Provider Emergency Medicine; PCP Registered Nurse
DX: I16.1 Hypertensive emergency (principal); R07.9 Chest pain, unspecified; I10 Essential (primary) hypertension
CPT/HCPCS: 36415; 71045; 71275; 74174; 80053; 82550; 83690; 83735; 84484; 85025; 85610; 85730; 93005; 96365; 96366; 96375; 99284; 99291; J1170; J2270; J2405; Q9967

== ENCOUNTER → 2024-01-15 07:56 | Outpatient (CLI) | payer OTHER, SELFPAY ==
[2021-07-25 17:22] VITALS: BMI 26.9
--- NOTE | 2024-01-15 | DI.MRI.S_ITS ---
PROCEDURE: MR SHOULDER RT WO CON INDICATIONS: PAIN IN RIGHT SHOULDER TECHNIQUE: Noncontrast oblique coronal T2 fast spin echo with fat saturation, oblique sagittal T1 spin echo and T2 fast spin echo with fat saturation, axial T1 spin echo and T2 fast spin echo with fat saturation through the shoulder. COMPARISON: None. FINDINGS: Image quality: Excellent. Rotator cuff: Low to moderate grade bursal surface partial thickness tear involving distal supraspinatus at its insertion on the humeral head is seen extending to musculotendinous junction. Low-grade articular surface partial-thickness tear involving distal infraspinatus at its insertion on the humeral head. Low-grade intrasubstance partial-thickness tear involving distal subscapularis. No full-thickness rotator cuff tendon rupture. Sagittal images demonstrate no significant rotator cuff muscle atrophy. Bones and bursae: Shallow chronic appearing Hill-Sachs deformity involving posterior lateral humeral head is seen. No acute fracture or dislocation. Moderate acromioclavicular joint osteoarthritic changes are seen with joint space narrowing and downward osteophyte formation depressing the musculotendinous junction of supraspinatus. Moderate glenohumeral joint osteoarthritic changes also seen. Type 2 acromion without an os acromiale. Small amount of joint fluid and subacromial subdeltoid bursal fluid is seen, no loose bodies. Capsule and soft tissues: Signal abnormality and fraying of anterior inferior labrum is seen suggestive of anterior-inferior labral tear and is consistent with Bankart ejection. The long head of the biceps tendon appears thickened. IMPRESSION: 1. Low to moderate grade bursal surface partial thickness tear involving distal supraspinatus extending to musculotendinous junction. Low-grade articular surface partial-thickness tear involving distal infraspinatus. Low-grade intrasubstance partial-thickness tear involving distal subscapularis. No full-thickness rotator cuff tendon rupture. No significant rotator cuff muscle atrophy. 2. Shallow chronic appearing Hill-Sachs deformity involving posterior lateral humeral head. No Bankart fracture. Moderate acromioclavicular joint osteoarthritis. Moderate joint effusion and subacromial subdeltoid bursal fluid. No gross loose bodies. 3. Suggestive of anterior-inferior glenoid labral tear and is consistent with Bankart lesion. 4. Proximal long head of biceps tendinosis. Dictated by: Pollo Herbert M.D. on 01/17/2024 at 20:22 Approved by: Pollo Herbert M.D. on 01/17/2024 at 20:32
== END ==
LOC: MRI 07:59
PROVIDERS: Referring Provider Nurse Practitioner Family; Visit Provider Nurse Practitioner Family
DX: M75.111 Incomplete rotator cuff tear or rupture of right shoulder, not specified as traumatic; S42.291A Other displaced fracture of upper end of right humerus, initial encounter for closed fracture; M19.011 Primary osteoarthritis, right shoulder; M25.411 Effusion, right shoulder; M25.511 Pain in right shoulder
CPT/HCPCS: 73221

== ENCOUNTER → 2024-05-08 11:45 | Outpatient (CLI) | payer OTHER, SELFPAY ==
[2021-07-25 17:22] VITALS: BMI 26.9
--- NOTE | 2024-05-08 11:45 | DI.CT.S_ITS ---
PROCEDURE: CT CHEST WO CON INDICATIONS: PULMONARY NODULE TECHNIQUE: Noncontrast 5 mm thick sections acquired from the pulmonary apices to the posterior costophrenic angles. 1 mm lung window, 5 mm thick coronal and sagittal and 7 mm axial MIP reformats were then acquired. For radiation dose reduction, the following was used: automated exposure control, adjustment of mA and/or kV according to patient size. COMPARISON: [facility], CT, CT ANGIO CHEST ABDOMEN PELVIS, 07/30/2023, 15:33. FINDINGS: Image quality: Diagnostic. Lower Neck: No enlarged lymph nodes. Thyroid: No thyroid nodules which require sonographic follow up, per consensus guidelines. Axillae: No enlarged lymph nodes. Chest Wall: Unremarkable. Bones: Unremarkable. Lungs and Pleura: No pneumothorax or pleural effusions. The previously described 1 cm right upper lobe nodule has a more plate-like appearance on today's exam, measuring approximately 1.2 x 0.6 cm. Heart: Heart size is normal. No pericardial effusion. Thoracic Vessels: The aorta and pulmonary arteries demonstrate normal size. Mediastinum and Vilma: No enlarged lymph nodes. Esophagus: No wall thickening. No hiatal hernia. Patulous esophagus. Upper Abdomen: Visualized upper abdomen solid organs and bowel loops appear normal. IMPRESSION: Interval change in morphology of the right upper lobe nodule, now platelike in appearance. There has been slight interval growth, now measuring 1.2 x 0.6 cm, previously 1.0 x 0.8 cm. Consider additional six-month follow-up to evaluate for change. Dictated by: Dariel Cortes M.D. on 05/08/2024 at 14:06 Approved by: Dariel Cortes M.D. on 05/08/2024 at 14:16
== END ==
PROVIDERS: PCP Nurse Practitioner Family; Referring Provider Nurse Practitioner Family; Visit Provider Nurse Practitioner Family
DX: R91.1 Solitary pulmonary nodule (principal)
CPT/HCPCS: 71250